=== PATIENT | male | born 1940 | race African-American/Black ===

== ENCOUNTER → 2016-09-12 | Outpatient (CLI) | payer OTHER ==
[~2016-09-12] MED LIST: ADULT LOW DOSE81 MG; ADVAIR 250-501 EACH; ADVAIR 250-501 EACH INH; ALBUTEROL2.5 MG/0.5 INH; ALDACTONE25 MG PO; ALLOPURINOL 30300 M1 PO; AMARYL4 MG; AMARYL4 MG PO; AMLODIPINE BESYL5 MG; ANORO ELLIPTA1 EACH IH; APAP650 PO; ASPIRIN EC81 M1 PO; ATENOLOL 25MG T25 MG PO; AUGMENTIN 875875 MG PO; AYR50 ML NASAL; BAYER CHEWABLE81 MG PO; BENICAR20 MG; BENTYL 20 MG TA20 M1 PO; CARAFATE 1 GM TA1 G1 PO; CARDIZEM CD 18180 M3 PO; CARTIA PO; CEFTIN 250 MG250 MG PO; CENTRUM SILVER1 EAC2 PO; CIPRO500 MG PO; CIPROFLOXACIN500 M1 PO; COUMADIN 10MG T10 M1; COUMADIN 10MG T10 M1 PO; COUMADIN 1MG TAB1 M1 PO; COUMADIN 4 MG TA4 M1 PO; COUMADIN 5 MG TA5 M1 PO; COUMADIN7.5 MG PO; COZAAR 50 MG TA50 M1 PO; CRESTOR5 MG; CRESTOR5 MG PO; DICYCLOMINE HCL10 MG PO; DILTIAZEM ER240 M1 PO; DOXYCYCLINE 10100 MG PO; FLAGYL500 MG PO; GLUCOPHAGE1000 MG; GLUMETZA1000 PO; IRON325 PO; JANUVIA100 MG; JANUVIA100 MG PO; K-DUR10 MEQ PO; KLOR-CON 1010 MEQ; KLOR-CON 1010 MEQ PO; LASIX 40 MG TAB40 M1 PO; LASIX 80 MG TAB80 MG PO; LEVAQUIN 500 M500 M2 PO; LEVEMIR SUBQ; LIPITOR10 MG PO; LOPERAMIDE 2 MG2 M1 PO; LOPRESSOR100 MG; MELATONIN3 MG PO; MUCINEX TA600 MG/TA1 PO; MUCINEX TA600 MG/TA2 PO; NASACORT10.8 ML NS; NEXIUM40 MG PO; NORCO 5-325 TA1 EACH PO; NOVOLOG MI100 UNIT/M SUBQ; NOVOLOG100 UNIT/1 SUBQ; OMEPRAZOLE20 M2 PO; PREDNISONE 10 M10 M1; PREDNISONE 20 M20 MG PO; PRILOSEC20 MG PO; PROAIR HFA8.5 GM INH; PROVENTIL HFA6.7 G1 INH; RABEPRAZOLE SOD20 MG PO; REGLAN 10 MG TA10 MG PO; SOLOSTAR PO; SPIRIVA INH; TOPROL XL25 MG PO; TUMS PO; TYLENOL325 MG PO; VITAMIN C250 MG PO; VITAMIN D 5050000 I1 PO; ZANTAC 150MG T150 M1 PO; ZOFRAN ODT4 MG PO; ZPAK PO
== END ==
LOC: HYPER 07:08
DX: T81.89XD Other complications of procedures, not elsewhere classified, subsequent encounter (principal); E11.69 Type 2 diabetes mellitus with other specified complication; I10 Essential (primary) hypertension; E66.01 Morbid (severe) obesity due to excess calories; E78.00 Pure hypercholesterolemia, unspecified; J44.9 Chronic obstructive pulmonary disease, unspecified; I48.91 Unspecified atrial fibrillation; Z79.4 Long term (current) use of insulin; Z79.84 Long term (current) use of oral hypoglycemic drugs; Y83.8 Other surgical procedures as the cause of abnormal reaction of the patient, or of later complication, without mention of misadventure at the time of the procedure

== ENCOUNTER → 2016-10-03 | Outpatient (CLI) | payer OTHER | LOC: HYPER 07:02 | DX: T81.89XA Other complications of procedures, not elsewhere classified, initial encounter (principal); E66.9 Obesity, unspecified; Z79.84 Long term (current) use of oral hypoglycemic drugs; J44.9 Chronic obstructive pulmonary disease, unspecified; I48.91 Unspecified atrial fibrillation; Z79.4 Long term (current) use of insulin; Y83.8 Other surgical procedures as the cause of abnormal reaction of the patient, or of later complication, without mention of misadventure at the time of the procedure ==

== ENCOUNTER → 2016-12-03 | Outpatient (CLI) | payer OTHER | LOC: HYPER 07:04 | DX: T81.89XD Other complications of procedures, not elsewhere classified, subsequent encounter (principal); E11.65 Type 2 diabetes mellitus with hyperglycemia; J44.9 Chronic obstructive pulmonary disease, unspecified; I48.91 Unspecified atrial fibrillation; E78.00 Pure hypercholesterolemia, unspecified; I10 Essential (primary) hypertension; E66.01 Morbid (severe) obesity due to excess calories; Z79.4 Long term (current) use of insulin; Z79.84 Long term (current) use of oral hypoglycemic drugs; Y83.8 Other surgical procedures as the cause of abnormal reaction of the patient, or of later complication, without mention of misadventure at the time of the procedure ==

== ENCOUNTER → 2016-12-17 | Outpatient (CLI) | payer OTHER ==
[~2016-12-17] VITALS: Ht 198.1 cm; Wt 145.1 kg
[~2016-12-17] MED LIST changes: +ALLOPURINOL 30300 M2 PO; +APAP500 PO; +ATENOLOL 50MG T50 M1 PO; +CARDIZEM CD240 MG PO; +LEVEMIR FL100 UNIT/2 SQ; +PROBIOTIC1 EAC2 PO; +ROSUVASTATIN CAL5 MG PO
--- NOTE | ~2016-12-17 | CATHLAB ---
[facility] [place] [address] INVASIVE PROCEDURE REPORT Name: VALENTE HUAELL Room #: REG [facility]#: [id number] Admission: 12/17/16 Attend Phys: Enrrique Cruz MD Discharge: Date of : 40 Date of Service: 12/17/16 0934 Report #: [id number] THIS REPORT FOR: //name// CC: Enrrique Lopez DATE OF SERVICE: 12/17/2016 CARDIAC CATHETERIZATION REPORT INDICATION: Dyspnea, abnormal nuclear stress test. Full risks, benefits and alternatives of cardiac catheterization were explained to the patient. All questions were answered. Informed consent was obtained. The right groin area was prepped and draped in a sterile manner. Lidocaine was given subcutaneously. A 4-Korean sheath was inserted into the right femoral artery via modified Seldinger technique. CORONARY ANATOMY: The left main artery is a large-caliber vessel, with no flow-limiting lesions. The LAD is a moderate-sized caliber vessel, travelling down the anterior wall and wrapping around the apex. There is only mild disease in the proximal segment, less than 20%. The first diagonal artery is a moderate-sized caliber vessel with mild disease proximally. The left circumflex artery is a moderate-sized caliber vessel, supplying 3 obtuse marginal arteries. There is only mild disease in the proximal segment of the left circumflex artery, less than 20%. The RCA is a moderate-sized caliber vessel, dominant, supplying the PDA and several posterolateral branches. There is only mild disease in the proximal segment of the RCA, less than 20%. A left ventriculogram was performed revealing a dilated left ventricle with probable moderate global LV dysfunction, EF around 40%. Accurate assessment is technically difficult secondary to ectopy. The LVEDP is approximately 25 mmHg. There is no gradient across the outflow tract. IMPRESSION: 1. Mild, nonobstructive coronary artery disease. 2. Right dominant system. [facility] [address] [place] [address] INVASIVE PROCEDURE REPORT Name: VALENTE HUA FRESH MEADOWS Room #: REG [facility]#: [id number] Admission: 12/17/16 Attend Phys: Enrrique Cruz MD Discharge: Date of : 40 Date of Service: 12/17/16 0934 Report #: [id number] 3. Probable moderate global left ventricular dysfunction. 4. Recommend medical therapy. <ELECTRONICALLY SIGNED> By: Enrrique Cruz MD 12/18/16 0008 0934 1307 Enrrique Cruz MD /nt
[2016-12-17 07:21] VITALS: BP 109/69
== END ==
LOC: CATH 06:32
DX: R94.39 Abnormal result of other cardiovascular function study (principal); J44.9 Chronic obstructive pulmonary disease, unspecified; I51.9 Heart disease, unspecified; G47.33 Obstructive sleep apnea (adult) (pediatric); K58.8 Other irritable bowel syndrome; K21.9 Gastro-esophageal reflux disease without esophagitis; I10 Essential (primary) hypertension; G62.9 Polyneuropathy, unspecified; E11.9 Type 2 diabetes mellitus without complications; I42.8 Other cardiomyopathies; E78.00 Pure hypercholesterolemia, unspecified; E66.9 Obesity, unspecified; I49.8 Other specified cardiac arrhythmias; I50.9 Heart failure, unspecified; E78.5 Hyperlipidemia, unspecified; I48.91 Unspecified atrial fibrillation

== ENCOUNTER → 2016-12-21 | Outpatient (CLI) | payer OTHER | LOC: HYPER 08:22 | DX: T81.89XA Other complications of procedures, not elsewhere classified, initial encounter (principal); S31.109D Unspecified open wound of abdominal wall, unspecified quadrant without penetration into peritoneal cavity, subsequent encounter; E11.65 Type 2 diabetes mellitus with hyperglycemia; J44.9 Chronic obstructive pulmonary disease, unspecified; I48.91 Unspecified atrial fibrillation; E78.00 Pure hypercholesterolemia, unspecified; I10 Essential (primary) hypertension; E66.01 Morbid (severe) obesity due to excess calories; Z79.84 Long term (current) use of oral hypoglycemic drugs; Z79.4 Long term (current) use of insulin; Y83.8 Other surgical procedures as the cause of abnormal reaction of the patient, or of later complication, without mention of misadventure at the time of the procedure ==

== ENCOUNTER → 2017-01-15 | Outpatient (CLI) | payer OTHER | LOC: HYPER 07:08 | DX: T81.89XD Other complications of procedures, not elsewhere classified, subsequent encounter (principal); E11.65 Type 2 diabetes mellitus with hyperglycemia; J44.9 Chronic obstructive pulmonary disease, unspecified; I48.91 Unspecified atrial fibrillation; I89.0 Lymphedema, not elsewhere classified; E78.00 Pure hypercholesterolemia, unspecified; I10 Essential (primary) hypertension; E66.01 Morbid (severe) obesity due to excess calories; G47.30 Sleep apnea, unspecified; Z79.4 Long term (current) use of insulin; Z79.84 Long term (current) use of oral hypoglycemic drugs; Y83.8 Other surgical procedures as the cause of abnormal reaction of the patient, or of later complication, without mention of misadventure at the time of the procedure ==

== ENCOUNTER → 2017-02-07 | Outpatient (CLI) | payer OTHER | LOC: HYPER 07:10 | DX: T81.89XD Other complications of procedures, not elsewhere classified, subsequent encounter (principal); E11.65 Type 2 diabetes mellitus with hyperglycemia; E66.9 Obesity, unspecified; J44.9 Chronic obstructive pulmonary disease, unspecified; I10 Essential (primary) hypertension; I48.91 Unspecified atrial fibrillation; I89.0 Lymphedema, not elsewhere classified; E78.00 Pure hypercholesterolemia, unspecified; E66.01 Morbid (severe) obesity due to excess calories; G47.30 Sleep apnea, unspecified; Z79.84 Long term (current) use of oral hypoglycemic drugs; Z79.4 Long term (current) use of insulin; Y83.8 Other surgical procedures as the cause of abnormal reaction of the patient, or of later complication, without mention of misadventure at the time of the procedure ==

== ENCOUNTER → 2017-03-01 | Outpatient (CLI) | payer OTHER | LOC: HYPER 07:51 | DX: T81.89XD Other complications of procedures, not elsewhere classified, subsequent encounter (principal); E11.65 Type 2 diabetes mellitus with hyperglycemia; J44.9 Chronic obstructive pulmonary disease, unspecified; I48.91 Unspecified atrial fibrillation; I89.0 Lymphedema, not elsewhere classified; E66.01 Morbid (severe) obesity due to excess calories; G47.30 Sleep apnea, unspecified; Z79.84 Long term (current) use of oral hypoglycemic drugs; Z79.4 Long term (current) use of insulin; Z68.39 Body mass index [BMI] 39.0-39.9, adult; Y83.8 Other surgical procedures as the cause of abnormal reaction of the patient, or of later complication, without mention of misadventure at the time of the procedure ==

== ENCOUNTER 2017-03-02 12:26 | Emergency (ER) | payer OTHER ==
[~2017-03-02] VITALS: Ht 198.1 cm; Wt 143.8 kg
--- NOTE | ~2017-03-02 | EKG ---
[address] [address] ELECTROCARDIOGRAM REPORT Name: VALENTE HUA Room #: DEP [place]#: [id number] Admission: 03/02/17 Attend Phys: Discharge: 03/02/17 Date of : 40 Report #: [id number] THIS REPORT FOR: //name// [facility] ED Test Date: 2017-03-02 Test Time: 12:53:48 Pat Name: VALENTE HUA Department: Room: Gender: Glass Cutting Machine Feeder: PARISH : 1940 Requested By: Eleuterio Carrizales Order Number: [id number] MD: Gorge Roach Measurements Intervals [place] Rate: 87 P: DC: QRS: 3 QRSD: 171 T: 9 QT: 442 QTc: 532 Interpretive Statements Atrial fibrillation Right bundle branch block Compared to ECG 12/14/2016 16:23:14 No significant changes Electronically Signed On 03-02-2017 16:29:09 CDT by Gorge Roach [email or web address] <ELECTRONICALLY SIGNED> By: Gorge Roach MD 03/02/17 1629 1253 52 Gorge Roach MD /SHAN
[2017-03-02 13:17] LABS: ABSOLUTE NEUTROPHILS 6.2 thou/uL (1.4-8.2); BASOPHILS 0.5 % (0.0-2.0); EOSINOPHILS 1.2 % (0.0-3.0); HEMATOCRIT 36.5 % (42.0-52.0); HEMOGLOBIN 12.7 gm/dL (14.0-18.0); LYMPHOCYTES 27.1 % (24.0-44.0); MCH 29.5 pg (26.0-34.0); MCHC 34.7 g/dL (28.0-37.0); MONOCYTES 10.6 % (1.0-8.0); PLATELET COUNT 170 thou/uL (150-400); POLYS 60.6 % (36.0-66.0); RBC 4.29 mil/uL (4.50-6.00); RDW 15.1 % (10.5-14.5); WBC 10.2 thou/uL (4.0-11.0)
[2017-03-02 13:18] LABS: MANUAL DIFF NO
[2017-03-02 13:27] LABS: CALCIUM 9.4 mg/dL (8.5-10.1); CREATININE 1.3 mg/dL (0.7-1.3)
[2017-03-02 14:13] LABS: PROTIME 31.1 Seconds (9.3-11.4)
[2017-03-02 14:50] VITALS: BP 112/56
== END 2017-03-02 14:39 ==
LOC: ER 12:26
PROVIDERS: Emergency Medicine
DX: M79.89 Other specified soft tissue disorders (principal); I48.2 Chronic atrial fibrillation; K21.9 Gastro-esophageal reflux disease without esophagitis; I11.9 Hypertensive heart disease without heart failure; J96.10 Chronic respiratory failure, unspecified whether with hypoxia or hypercapnia; E11.40 Type 2 diabetes mellitus with diabetic neuropathy, unspecified; E78.00 Pure hypercholesterolemia, unspecified; E66.9 Obesity, unspecified; Z98.890 Other specified postprocedural states

== ENCOUNTER → 2017-03-20 | Outpatient (CLI) | payer OTHER | LOC: CAT 13:23 | DX: J32.0 Chronic maxillary sinusitis (principal); J32.2 Chronic ethmoidal sinusitis ==

== ENCOUNTER → 2017-03-22 | Outpatient (CLI) | payer OTHER | LOC: HYPER 08:09 | DX: T81.89XD Other complications of procedures, not elsewhere classified, subsequent encounter (principal); J44.9 Chronic obstructive pulmonary disease, unspecified; I48.91 Unspecified atrial fibrillation; I89.0 Lymphedema, not elsewhere classified; E11.9 Type 2 diabetes mellitus without complications; E78.00 Pure hypercholesterolemia, unspecified; I10 Essential (primary) hypertension; E66.01 Morbid (severe) obesity due to excess calories; Z79.84 Long term (current) use of oral hypoglycemic drugs; Z79.4 Long term (current) use of insulin; Y83.8 Other surgical procedures as the cause of abnormal reaction of the patient, or of later complication, without mention of misadventure at the time of the procedure ==

== ENCOUNTER → 2017-04-15 | Outpatient (CLI) | payer OTHER ==
[~2017-04-15] MED LIST changes: +ALBUTEROL2.5 MG/31 INH; +PANTOPRAZOLE SO40 M1 PO
== END ==
LOC: HYPER 08:00
DX: T81.89XD Other complications of procedures, not elsewhere classified, subsequent encounter (principal); E11.65 Type 2 diabetes mellitus with hyperglycemia; J44.9 Chronic obstructive pulmonary disease, unspecified; I48.91 Unspecified atrial fibrillation; I89.0 Lymphedema, not elsewhere classified; E78.00 Pure hypercholesterolemia, unspecified; I10 Essential (primary) hypertension; E66.01 Morbid (severe) obesity due to excess calories; G47.30 Sleep apnea, unspecified; Z79.84 Long term (current) use of oral hypoglycemic drugs; Z79.4 Long term (current) use of insulin; Z68.39 Body mass index [BMI] 39.0-39.9, adult; Y83.8 Other surgical procedures as the cause of abnormal reaction of the patient, or of later complication, without mention of misadventure at the time of the procedure

== ENCOUNTER 2017-04-21 15:11 | Inpatient (IN) | payer OTHER ==
[~2017-04-21] VITALS: Ht 195.6 cm; Wt 149.7 kg
--- NOTE | ~2017-04-21 | EKG ---
[address] [address] ELECTROCARDIOGRAM REPORT Name: VALENTE HUA Room #: 443-P ADM IN M.R.#: [id number] Admission: 04/21/17 Attend Phys: Cody Robb DO Discharge: Date of : 40 Report #: [id number] THIS REPORT FOR: //name// [facility] ED Test Date: 2017-04-21 Test Time: 16:44:34 Pat Name: VALENTE HUA Department: Room: 443 Gender: M Vocational Rehabilitation Specialist: hardy molina : 1940 Requested By: Hilda Beauchamp Order Number: [id number] MD: Gorge Roach Measurements Intervals [place] Rate: 88 P: NE: QRS: 9 QRSD: 167 T: 2 QT: 427 QTc: 517 Interpretive Statements Atrial fibrillation Right bundle branch block Compared to ECG 03/02/2017 12:53:48 No significant changes Electronically Signed On 04-21-2017 22:22:34 CDT by Gorge Roach [email or web address] <ELECTRONICALLY SIGNED> By: Gorge Roach MD 04/21/172 43 Gorge Roach MD /SHAN
--- NOTE | ~2017-04-21 | EKG ---
[address] [address] ELECTROCARDIOGRAM REPORT Name: VALENTE HUA Room #: 443- ADM IN M.R.#: [id number] Admission: 04/21/17 Attend Phys: Cody Robb DO Discharge: Date of : 40 Report #: [id number] THIS REPORT FOR: //name// [facility] Test Date: 2017-04-22 Test Time: 08:52:23 Pat Name: VALENTE HUA Department: Room: 443 P Gender: M Shells Inspector: DELIA : 1940 Requested By: Edyta Ortega Order Number: [id number] MD: Pritesh Aleman Measurements Intervals [place] Rate: 73 P: MD: QRS: 29 QRSD: 171 T: 0 QT: 471 QTc: 519 Interpretive Statements Atrial fibrillation Right bundle branch block Compared to ECG 04/21/2017 16:44:34 Atrial fibrillation has replaced sinus rhythm Electronically Signed On 04-23-2017 10:05:22 CDT by Pritesh lAeman [email or web address] <ELECTRONICALLY SIGNED> By: Pritesh Aleman MD, [facility] 04/23/17 1005 Pritesh Aleman MD, [facility] /EPI
--- NOTE | ~2017-04-21 | EKG ---
[address] [address] ELECTROCARDIOGRAM REPORT Name: VALENTE HUA Room #: 443-P ADM IN M.R.#: [id number] Admission: 04/21/17 Attend Phys: Cody Robb DO Discharge: Date of : 40 Report #: [id number] THIS REPORT FOR: //name// [facility] ED Test Date: 2017-04-21 Test Time: 16:54:19 Pat Name: VALENTE HUA Department: Room: 443 P Gender: M Clothing Man: hardy molina : 1940 Requested By: Cody Robb Order Number: [id number] MD: Pritesh Aleman Measurements Intervals [place] Rate: 94 P: 69 [place]: 135 QRS: -6 QRSD: 87 T: 53 QT: 357 QTc: 447 Interpretive Statements Sinus rhythm Repolarization abnormality, probably early repolarization Compared to ECG 04/21/2017 16:44:34 right bundle-branch block no longer present sinus rhythm is replaced atrial fibrillation Electronically Signed On 04-23-2017 9:54:52 CDT by Pritesh Aleman [email or web address] <ELECTRONICALLY SIGNED> By: Pritesh Aleman MD, [facility] 04/23/17 0954 1654 1654 Pritesh Aleman MD, [facility] /EPI
[2017-04-21 15:11] VITALS: BP 156/75
[~2017-04-21 15:11] MED LIST changes: -ALBUTEROL2.5 MG/31 INH; -PANTOPRAZOLE SO40 M1 PO
[2017-04-21 16:53] LABS: HEMATOCRIT 36.9 % (42.0-52.0); HEMOGLOBIN 12.8 gm/dL (14.0-18.0); MCHC 34.8 g/dL (28.0-37.0); MCV 86.3 fL (80.0-100.0); PLATELET COUNT 161 thou/uL (150-400); RBC 4.27 mil/uL (4.50-6.00); RDW 15.5 % (10.5-14.5); WBC 9.7 thou/uL (4.0-11.0)
[2017-04-21 16:55] LABS: MANUAL DIFF YES
[2017-04-21 17:02] LABS: ANION GAP 7 mmol/L (7-16); BUN 20 mg/dL (7-18); CALCIUM 9.8 mg/dL (8.5-10.1); CHLORIDE 98 mmol/L (98-107); CO2 34 mmol/L (21-32); CREATININE 1.2 mg/dL (0.7-1.3); GLUCOSE 193 mg/dL (74-106); POTASSIUM 3.9 mmol/L (3.5-5.1); SODIUM 139 mmol/L (136-145)
[2017-04-21 17:11] LABS: ALBUMIN 3.5 g/dL (3.4-5.0); ALKALINE PHOSPHATASE 143 U/L (46-116); DIRECT BILIRUBIN < 0.1 mg/dL (<0.1-0.3); SGOT 26 U/L (15-37); SGPT 17 U/L (30-65); TOTAL BILIRUBIN 0.2 mg/dL (<0.1-1.0); TOTAL PROTEIN 8.1 g/dL (6.4-8.2); TROPONIN-I < 0.04 ng/mL (<0.04-0.07)
[2017-04-21 17:20] LABS: ABSOLUTE NEUTROPHILS 6.1 thou/uL (1.4-8.2); TOTAL CELL COUNT 100
[2017-04-21 19:03] VITALS: BP 124/78
[2017-04-21 19:58] VITALS: BP 116/92
[2017-04-21] MEDS ORDERED: COUMADIN 4 MG TA4 M1 PO ×2 (20:13→20:14)
[2017-04-21 21:39] LABS: INR 2.9; PROTIME 29.4 Seconds (9.3-11.4)
[2017-04-21] MEDS ORDERED: ALBUTEROL2.5 MG/31 INH (23:49)
[2017-04-22 04:30] VITALS: BP 116/92
[2017-04-22 08:00] VITALS: BP 116/66
[2017-04-22 10:59] LABS: INR 2.3; PROTIME 23.4 Seconds (9.3-11.4)
[2017-04-22 16:00] VITALS: BP 113/54
[2017-04-22 16:58] VITALS: BP 113/54
[2017-04-22 20:03] VITALS: BP 112/61
[2017-04-23 03:32] VITALS: BP 139/60
[2017-04-23 06:23] LABS: HEMATOCRIT 33.7 % (42.0-52.0); HEMOGLOBIN 11.5 gm/dL (14.0-18.0); MCH 29.7 pg (26.0-34.0); MCHC 34.2 g/dL (28.0-37.0); PLATELET COUNT 140 thou/uL (150-400); RBC 3.87 mil/uL (4.50-6.00); RDW 15.6 % (10.5-14.5); WBC 8.4 thou/uL (4.0-11.0)
[2017-04-23 06:24] LABS: MANUAL DIFF YES
[2017-04-23 06:29] LABS: INR 1.8; PROTIME 18.7 Seconds (9.3-11.4)
[2017-04-23 06:35] LABS: CALCIUM 8.6 mg/dL (8.5-10.1); CREATININE 0.9 mg/dL (0.7-1.3); POTASSIUM 3.9 mmol/L (3.5-5.1)
[2017-04-23 08:36] LABS: ABSOLUTE NEUTROPHILS 5.7 thou/uL (1.4-8.2); METAMYELOCYTES 1 %; PLATELET ESTIMATE NORMAL; TOTAL CELL COUNT 100
[2017-04-23 08:52] VITALS: BP 131/63
[2017-04-23] MEDS ORDERED: PANTOPRAZOLE SO40 M1 PO (10:32)
[2017-04-23] MEDS ORDERED: ATENOLOL 50MG T50 M1 PO (10:34)
[2017-04-23 13:21] VITALS: BP 113/54
== END 2017-04-23 12:33 | disposition home health service (06) | DRG 389 ==
LOC: ER 15:11 → EROBS 18:35 → 4S 18:35 → EDBD 04-23 12:33 → 4S 04-23 12:33
PROVIDERS: Emergency Medicine; Family Medicine; Nurse Practitioner Acute Care; Nurse Practitioner Gerontology
DX: K56.7 Ileus, unspecified (principal); J96.10 Chronic respiratory failure, unspecified whether with hypoxia or hypercapnia; I42.9 Cardiomyopathy, unspecified; R07.9 Chest pain, unspecified; K43.2 Incisional hernia without obstruction or gangrene; G47.33 Obstructive sleep apnea (adult) (pediatric); K58.9 Irritable bowel syndrome, unspecified; K21.9 Gastro-esophageal reflux disease without esophagitis; I48.2 Chronic atrial fibrillation; E11.40 Type 2 diabetes mellitus with diabetic neuropathy, unspecified; E78.00 Pure hypercholesterolemia, unspecified; M10.9 Gout, unspecified; E66.01 Morbid (severe) obesity due to excess calories; E78.5 Hyperlipidemia, unspecified; J44.9 Chronic obstructive pulmonary disease, unspecified; I50.9 Heart failure, unspecified; I11.0 Hypertensive heart disease with heart failure; Z68.39 Body mass index [BMI] 39.0-39.9, adult; Z79.899 Other long term (current) drug therapy; Z79.4 Long term (current) use of insulin
CPT/HCPCS: 10100

== ENCOUNTER → 2017-05-10 | Outpatient (CLI) | payer OTHER ==
[~2017-05-10] MED LIST changes: +ALBUTEROL2.5 MG/31 INH; +PANTOPRAZOLE SO40 M1 PO
== END ==
LOC: HYPER 07:59
DX: T81.89XD Other complications of procedures, not elsewhere classified, subsequent encounter (principal); E11.65 Type 2 diabetes mellitus with hyperglycemia; J44.9 Chronic obstructive pulmonary disease, unspecified; I48.91 Unspecified atrial fibrillation; Z79.4 Long term (current) use of insulin; I89.0 Lymphedema, not elsewhere classified; E78.00 Pure hypercholesterolemia, unspecified; E66.01 Morbid (severe) obesity due to excess calories; G47.30 Sleep apnea, unspecified; Z79.84 Long term (current) use of oral hypoglycemic drugs; Z68.39 Body mass index [BMI] 39.0-39.9, adult; Y83.8 Other surgical procedures as the cause of abnormal reaction of the patient, or of later complication, without mention of misadventure at the time of the procedure

== ENCOUNTER → 2017-06-03 | Outpatient (CLI) | payer OTHER | LOC: HYPER 07:01 | DX: T81.89XD Other complications of procedures, not elsewhere classified, subsequent encounter (principal); J44.9 Chronic obstructive pulmonary disease, unspecified; I48.91 Unspecified atrial fibrillation; I89.0 Lymphedema, not elsewhere classified; E78.00 Pure hypercholesterolemia, unspecified; I10 Essential (primary) hypertension; E66.01 Morbid (severe) obesity due to excess calories; Z79.4 Long term (current) use of insulin; Z79.84 Long term (current) use of oral hypoglycemic drugs; Y83.8 Other surgical procedures as the cause of abnormal reaction of the patient, or of later complication, without mention of misadventure at the time of the procedure ==

== ENCOUNTER → 2017-08-08 | Outpatient (CLI) | payer OTHER | LOC: SEN 06-20 10:55 | DX: R20.2 Paresthesia of skin (principal); I50.9 Heart failure, unspecified; E11.9 Type 2 diabetes mellitus without complications; I48.91 Unspecified atrial fibrillation ==

== ENCOUNTER 2017-09-25 15:25 | Inpatient (IN) | payer OTHER, SELFPAY ==
[~2017-09-25] VITALS: Ht 195.6 cm; Wt 153.2 kg
--- NOTE | ~2017-09-25 | EKG ---
[address] [address] [facility] [place] [address] ELECTROCARDIOGRAM REPORT Name: VALENTE HUA Room #: 170-9 ADM IN M.R.#: [id number] Admission: 09/25/17 Attend Phys: Cody Robb DO Discharge: Date of : [birth year] Report #: [id number] THIS REPORT FOR: //name// [facility] ED Test Date: 2017-09-25 Test Time: 16:02:46 Pat Name: VALENTE HUA Department: Room: 170 Gender: M Stripper Soft Plastic: RADHA : 1939-11-06 Requested By: Raza Wagner Order Number: [id number] MD: Pritesh Aleman Measurements Intervals [place] Rate: 125 P: -70 [place]: 88 QRS: 22 QRSD: 167 T: 0 QT: 348 QTc: 502 Interpretive Statements Atrial fibrillation Multiple premature complexes, vent Right bundle branch block Compared to ECG 04/22/2017 08:52:23 Premature ventricular complexes are now present Electronically Signed On 09-25-2017 17:37:45 PLASTIC PARTS DESIGNER by Pritesh Aleman [email or web address] <ELECTRONICALLY SIGNED> By: Pritesh Aleman MD, [facility] 09/25/17 1737 1602 160 Pritesh Aleman MD, FAC /EPI
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
[2017-09-25 15:26] VITALS: BP 131/53
[2017-09-25 16:39] LABS: HEMATOCRIT 34.7 % (42.0-52.0); MCH 30.2 pg (26.0-34.0); MCHC 34.4 g/dL (28.0-37.0); MCV 87.7 fL (80.0-100.0); PLATELET COUNT 121 thou/uL (150-400); RBC 3.96 mil/uL (4.50-6.00); WBC 8.6 thou/uL (4.0-11.0)
[2017-09-25 16:40] LABS: CALCIUM 9.1 mg/dL (8.5-10.1); CREATININE 1.2 mg/dL (0.7-1.3); POTASSIUM 3.5 mmol/L (3.5-5.1)
[2017-09-25 16:50] LABS: APTT 41.8 Seconds (24.5-32.8); INR 2.2
[2017-09-25 18:01] VITALS: BP 134/53
[2017-09-26 00:04] LABS: PROTIME 20.7 Seconds (9.3-11.4)
[2017-09-26 07:55] VITALS: BP 130/68
[2017-09-26 08:05] VITALS: BP 122/77
[2017-09-26 12:24] LABS: INR 1.8
[2017-09-26 12:52] VITALS: BP 133/74
[2017-09-26 14:54] VITALS: BP 133/74
[2017-09-26 15:43] VITALS: BP 138/74
[2017-09-26 20:04] VITALS: BP 128/82
[2017-09-27 03:40] LABS: INR 1.6; PROTIME 16.4 Seconds (9.3-11.4)
[2017-09-27 03:42] LABS: BASOPHILS 0.3 % (0.0-2.0); HEMATOCRIT 35.6 % (42.0-52.0); HEMOGLOBIN 12.2 gm/dL (14.0-18.0); LYMPHOCYTES 15.9 % (24.0-44.0); MCHC 34.1 g/dL (28.0-37.0); MCV 87.9 fL (80.0-100.0); MONOCYTES 3.6 % (1.0-8.0); PLATELET COUNT 135 thou/uL (150-400); POLYS 80.2 % (36.0-66.0); RBC 4.06 mil/uL (4.50-6.00); RDW 15.2 % (10.5-14.5)
[2017-09-27 03:43] LABS: CALCIUM 8.8 mg/dL (8.5-10.1); POTASSIUM 3.8 mmol/L (3.5-5.1)
[2017-09-27 04:08] VITALS: BP 127/71
[2017-09-27 07:52] VITALS: BP 128/59
[2017-09-27] MEDS ORDERED: DOXYCYCLINE 10100 MG PO (09:20)
[2017-09-27 09:57] VITALS: BP 128/59
[2018-01-23] MEDS ORDERED: ANTIVERT25 MG PO (14:28)
[2018-04-20] MEDS ORDERED: NORCO 5-325 TA1 EACH PO (01:41)
== END 2017-09-27 10:49 | disposition home or self-care (01) | DRG 308 ==
LOC: ER 15:25 → EROBS 17:26 → 2N 17:26 → ER 17:26 → 2N 09-26 14:53
PROVIDERS: Family Medicine; Physician Assistant
DX: I48.2 Chronic atrial fibrillation (principal); J96.21 Acute and chronic respiratory failure with hypoxia; Z68.41 Body mass index [BMI] 40.0-44.9, adult; J44.1 Chronic obstructive pulmonary disease with (acute) exacerbation; N39.0 Urinary tract infection, site not specified; I42.9 Cardiomyopathy, unspecified; G47.33 Obstructive sleep apnea (adult) (pediatric); K21.9 Gastro-esophageal reflux disease without esophagitis; I10 Essential (primary) hypertension; K58.9 Irritable bowel syndrome, unspecified; E11.40 Type 2 diabetes mellitus with diabetic neuropathy, unspecified; E78.00 Pure hypercholesterolemia, unspecified; E66.9 Obesity, unspecified; M10.9 Gout, unspecified; Z79.899 Other long term (current) drug therapy; Z80.9 Family history of malignant neoplasm, unspecified; Z79.01 Long term (current) use of anticoagulants
CPT/HCPCS: 10081

== ENCOUNTER 2017-09-29 09:40 | Emergency (ER) | payer OTHER ==
[~2017-09-29] VITALS: Ht 198.1 cm; Wt 140.2 kg
--- NOTE | ~2017-09-29 | EKG ---
[address] [address] [facility] [place] [address] ELECTROCARDIOGRAM REPORT Name: VALENTE HUA Room #: REG TAMIE Saldaña#: [id number] Admission: 09/29/17 Attend Phys: Discharge: Date of : [birth year] Report #: [id number] THIS REPORT FOR: //name// [facility] ED Test Date: 2017-09-29 Test Time: 10:10:10 Pat Name: VALENTE HUA Department: Room: Gender: M Qlikview Developer: alejandro : 1939-11-06 Requested By: Raza Wagner Order Number: [id number] MD: Gorge Roach Measurements Intervals [place] Rate: 75 P: [place]: QRS: 34 QRSD: 173 T: 20 QT: 468 QTc: 523 Interpretive Statements Atrial fibrillation Ventricular premature complex Right bundle branch block Compared to ECG 09/25/2017 16:02:46 Ventricular premature complex(es) now present Electronically Signed On 09-29-2017 12:16:43 SAW GRINDER by Gorge Roach [email or web address] <ELECTRONICALLY SIGNED> By: Gorge Roach MD 09/29/17 1216 1010 1010 Gorge Roach MD /SHAN
[2017-09-29 10:40] LABS: HEMATOCRIT 34.6 % (42.0-52.0); HEMOGLOBIN 11.8 gm/dL (14.0-18.0); MCH 30.1 pg (26.0-34.0); MCHC 34.1 g/dL (28.0-37.0); MCV 88.2 fL (80.0-100.0); PLATELET COUNT 150 thou/uL (150-400); RBC 3.92 mil/uL (4.50-6.00); RDW 15.1 % (10.5-14.5); WBC 7.2 thou/uL (4.0-11.0)
[2017-09-29 10:53] LABS: ANION GAP 6 mmol/L (7-16); BUN 26 mg/dL (7-18); CHLORIDE 101 mmol/L (98-107); CO2 34 mmol/L (21-32); CREATININE 1.1 mg/dL (0.7-1.3); GLUCOSE 214 mg/dL (74-106); POTASSIUM 3.8 mmol/L (3.5-5.1); SODIUM 141 mmol/L (136-145)
[2017-09-29 11:01] LABS: TROPONIN-I < 0.04 ng/mL (<0.06)
[2017-09-29 11:46] LABS: ABSOLUTE NEUTROPHILS 4.3 thou/uL (1.4-8.2); ANISOCYTOSIS 1+; TARGET CELLS 1+
[2017-09-29] MEDS ORDERED: PREDNISONE 20 M20 MG PO (11:47)
[2017-09-29 11:52] LABS: HYPOCHROMASIA SLIGHT; POIKILOCYTOSIS SLIGHT
[2017-09-29 12:13] VITALS: BP 166/68
[2018-01-23] MEDS ORDERED: ANTIVERT25 MG PO (14:28)
[2018-04-20] MEDS ORDERED: NORCO 5-325 TA1 EACH PO (01:41)
== END 2017-09-29 12:15 | disposition home or self-care (01) ==
LOC: ER 09:40
PROVIDERS: Physician Assistant
DX: J44.1 Chronic obstructive pulmonary disease with (acute) exacerbation (principal); R06.02 Shortness of breath; K58.9 Irritable bowel syndrome, unspecified; K21.9 Gastro-esophageal reflux disease without esophagitis; I10 Essential (primary) hypertension; E11.9 Type 2 diabetes mellitus without complications; G62.9 Polyneuropathy, unspecified; I42.9 Cardiomyopathy, unspecified; E78.00 Pure hypercholesterolemia, unspecified

== ENCOUNTER 2017-11-25 10:32 | Emergency (ER) | payer OTHER ==
[~2017-11-25] VITALS: Ht 198.1 cm; Wt 136.1 kg
[2017-11-25 10:34] VITALS: BP 163/83
[2017-11-25] MEDS ORDERED: DEMADEX20 MG PO (12:06)
[2018-01-23] MEDS ORDERED: ANTIVERT25 MG PO (14:28)
[2018-04-20] MEDS ORDERED: NORCO 5-325 TA1 EACH PO (01:41)
== END 2017-11-25 12:14 | disposition home or self-care (01) ==
LOC: ER 10:32
DX: R60.0 Localized edema (principal); I10 Essential (primary) hypertension; K21.9 Gastro-esophageal reflux disease without esophagitis; E11.9 Type 2 diabetes mellitus without complications; M10.9 Gout, unspecified; E78.00 Pure hypercholesterolemia, unspecified

== ENCOUNTER 2018-06-18 14:02 | Emergency (ER) | payer OTHER ==
[~2018-06-18] VITALS: Ht 198.1 cm; Wt 145.2 kg
[~2018-06-18 14:02] MED LIST changes: -ALLOPURINOL 10100 M1 PO; -OCEAN104 ML NASAL
[2018-06-18 15:34] VITALS: BP 120/68
== END 2018-06-18 15:36 | disposition home or self-care (01) ==
LOC: ER 14:02
DX: E86.0 Dehydration (principal); J96.10 Chronic respiratory failure, unspecified whether with hypoxia or hypercapnia; J44.9 Chronic obstructive pulmonary disease, unspecified; G47.33 Obstructive sleep apnea (adult) (pediatric); I48.91 Unspecified atrial fibrillation; K58.9 Irritable bowel syndrome, unspecified; K21.9 Gastro-esophageal reflux disease without esophagitis; I10 Essential (primary) hypertension; E11.40 Type 2 diabetes mellitus with diabetic neuropathy, unspecified; I42.9 Cardiomyopathy, unspecified; E78.00 Pure hypercholesterolemia, unspecified; M10.9 Gout, unspecified; E66.9 Obesity, unspecified; Z68.37 Body mass index [BMI] 37.0-37.9, adult; Z79.4 Long term (current) use of insulin

== ENCOUNTER → 2018-06-18 | Outpatient (CLI) | payer OTHER ==
[~2018-06-18] VITALS: Ht 198.1 cm; Wt 152.0 kg
[~2018-06-18] MED LIST changes: +ALLOPURINOL 10100 M1 PO; +ANTIVERT25 MG PO; +DEMADEX20 MG PO; +OCEAN104 ML NASAL
[2018-06-18 13:12] VITALS: BP 139/61
[2018-06-18 14:10] LABS: HEMOGLOBIN 12.9 gm/dL (14.0-18.0); MCH 29.4 pg (26.0-34.0); MCHC 34.7 g/dL (28.0-37.0); MCV 84.7 fL (80.0-100.0); PLATELET COUNT 168 thou/uL (150-400); RBC 4.37 mil/uL (4.50-6.00); URINE BILIRUBIN NEGATIVE (Negative); URINE BLOOD NEGATIVE (Negative); URINE CLARITY CLEAR; URINE COLOR YELLOW; URINE GLUCOSE-RANDOM* NEGATIVE (Negative); URINE KETONES TRACE (Negative); URINE LEUKOCYTES NEGATIVE (Negative); URINE NITRITE NEGATIVE (Negative); URINE PROTEIN (DIPSTICK) NEGATIVE (Negative); URINE UROBILINOGEN 0.2 E.U./dl (0.2-1.0); WBC 9.9 thou/uL (4.0-11.0)
[2018-06-18 14:18] LABS: CALCIUM 9.5 mg/dL (8.5-10.1); CREATININE 1.3 mg/dL (0.7-1.3); POTASSIUM 3.5 mmol/L (3.5-5.1)
[2018-06-18 14:32] LABS: ABSOLUTE NEUTROPHILS 4.8 thou/uL (1.4-8.2); PLATELET ESTIMATE NORMAL
== END ==
LOC: SEN 12:57
PROVIDERS: Nurse Practitioner Family
DX: K58.9 Irritable bowel syndrome, unspecified (principal); M54.5 Low back pain; E86.0 Dehydration

== ENCOUNTER 2018-06-20 02:45 | Inpatient (IN) | payer OTHER ==
[~2018-06-20] VITALS: Ht 198.1 cm; Wt 143.1 kg
[2018-06-20] VITALS (8 sets, daily range): BP systolic 127–152; BP diastolic 54–106
[2018-06-20 03:23] LABS: HEMATOCRIT 38.6 % (42.0-52.0); HEMOGLOBIN 13.5 gm/dL (14.0-18.0); MCH 29.9 pg (26.0-34.0); MCHC 34.9 g/dL (28.0-37.0); MCV 85.7 fL (80.0-100.0); RBC 4.51 mil/uL (4.50-6.00); RDW 15.3 % (10.5-14.5); WBC 8.6 thou/uL (4.0-11.0)
[2018-06-20 03:24] LABS: URINE BILIRUBIN NEGATIVE (Negative); URINE BLOOD NEGATIVE (Negative); URINE CLARITY CLEAR; URINE COLOR YELLOW; URINE GLUCOSE-RANDOM* NEGATIVE (Negative); URINE KETONES NEGATIVE (Negative); URINE LEUKOCYTES-REFLEX NEGATIVE (Negative); URINE NITRITE-REFLEX NEGATIVE (Negative); URINE PROTEIN (DIPSTICK) NEGATIVE (Negative)
[2018-06-20 03:32] LABS: CALCIUM 9.7 mg/dL (8.5-10.1); CREATININE 1.2 mg/dL (0.7-1.3); POTASSIUM 3.9 mmol/L (3.5-5.1)
[2018-06-20 03:38] LABS: ALBUMIN 3.5 g/dL (3.4-5.0); TOTAL BILIRUBIN 0.3 mg/dL (<0.1-1.0); TOTAL PROTEIN 8.2 g/dL (6.4-8.2)
[2018-06-21 04:45] VITALS: BP 158/96
[2018-06-21 05:21] LABS: HEMATOCRIT 35.7 % (42.0-52.0); HEMOGLOBIN 12.5 gm/dL (14.0-18.0); MCH 29.6 pg (26.0-34.0); MCHC 34.9 g/dL (28.0-37.0); MCV 84.8 fL (80.0-100.0); PLATELET COUNT 154 thou/uL (150-400); RBC 4.21 mil/uL (4.50-6.00); WBC 5.9 thou/uL (4.0-11.0)
[2018-06-21 05:27] LABS: PROTIME 20.4 Seconds (9.3-11.4)
[2018-06-21 05:30] LABS: CALCIUM 9.2 mg/dL (8.5-10.1); MAGNESIUM 1.4 mg/dL (1.8-2.4); POTASSIUM 3.9 mmol/L (3.5-5.1)
[2018-06-21 05:51] VITALS: BP 143/91
[2018-06-21 05:55] LABS: ABSOLUTE NEUTROPHILS 3.5 thou/uL (1.4-8.2)
[2018-06-21 05:56] LABS: LARGE PLATELETS FEW
[2018-06-21 07:05] VITALS: BP 155/71
[2018-06-21 15:45] VITALS: BP 157/73
[2018-06-21 21:49] VITALS: BP 157/85
[2018-06-22 04:35] LABS: HEMATOCRIT 37.3 % (42.0-52.0); HEMOGLOBIN 12.7 gm/dL (14.0-18.0); MCH 29.1 pg (26.0-34.0); MCHC 34.1 g/dL (28.0-37.0); MCV 85.4 fL (80.0-100.0); RBC 4.37 mil/uL (4.50-6.00); RDW 15.2 % (10.5-14.5); WBC 6.2 thou/uL (4.0-11.0)
[2018-06-22 04:40] LABS: CALCIUM 9.2 mg/dL (8.5-10.1); CREATININE 0.8 mg/dL (0.7-1.3); POTASSIUM 3.9 mmol/L (3.5-5.1); PROTIME 20.7 Seconds (9.3-11.4)
[2018-06-22 05:46] VITALS: BP 150/64
[2018-06-22 08:00] VITALS: BP 132/63
[2018-06-22 09:30] VITALS: BP 138/63
[2018-06-22 12:20] VITALS: BP 147/85
[2018-06-22 16:05] VITALS: BP 130/73
[2018-06-22] MEDS ORDERED: ALLOPURINOL 10100 M1 PO (20:17)
[2018-06-22] MEDS ORDERED: DEMADEX20 MG PO (20:20)
[2018-06-22] MEDS ORDERED: OCEAN104 ML NASAL (20:31)
[2018-06-22 20:35] VITALS: BP 143/59
[2018-06-23 04:45] VITALS: BP 132/96
[2018-06-23 07:28] VITALS: BP 138/56
[2018-06-23 14:58] VITALS: BP 135/74
[2018-06-23 20:30] VITALS: BP 146/84
[2018-06-24 04:45] VITALS: BP 146/91
[2018-06-24 06:03] LABS: HEMATOCRIT 37.8 % (42.0-52.0); MCH 28.9 pg (26.0-34.0); MCHC 34.3 g/dL (28.0-37.0); MCV 84.3 fL (80.0-100.0); RBC 4.48 mil/uL (4.50-6.00); WBC 5.9 thou/uL (4.0-11.0)
[2018-06-24 06:11] LABS: CALCIUM 9.8 mg/dL (8.5-10.1); CREATININE 0.9 mg/dL (0.7-1.3); POTASSIUM 4.1 mmol/L (3.5-5.1)
[2018-06-24 07:57] VITALS: BP 138/83
[2018-06-24 08:26] LABS: INR 1.9; PROTIME 19.4 Seconds (9.3-11.4)
[2018-06-24 09:19] VITALS: BP 138/83
== END 2018-06-24 12:13 | disposition left against medical advice (07) | DRG 393 ==
LOC: ER 02:45 → 2N 04:22 → EROBS 04:22 → 2N 04:53
PROVIDERS: Emergency Medicine; Hospitalist; Nurse Practitioner
DX: K43.6 Other and unspecified ventral hernia with obstruction, without gangrene (principal); N17.0 Acute kidney failure with tubular necrosis; J96.10 Chronic respiratory failure, unspecified whether with hypoxia or hypercapnia; I42.9 Cardiomyopathy, unspecified; J44.9 Chronic obstructive pulmonary disease, unspecified; G47.33 Obstructive sleep apnea (adult) (pediatric); I48.2 Chronic atrial fibrillation; K21.9 Gastro-esophageal reflux disease without esophagitis; I10 Essential (primary) hypertension; E78.00 Pure hypercholesterolemia, unspecified; E66.9 Obesity, unspecified; M10.9 Gout, unspecified; E11.42 Type 2 diabetes mellitus with diabetic polyneuropathy; M62.84 Sarcopenia; Z53.21 Procedure and treatment not carried out due to patient leaving prior to being seen by health care provider; K58.1 Irritable bowel syndrome with constipation; Z99.81 Dependence on supplemental oxygen; Z28.21 Immunization not carried out because of patient refusal; Z68.36 Body mass index [BMI] 36.0-36.9, adult; Z87.828 Personal history of other (healed) physical injury and trauma; Z79.4 Long term (current) use of insulin; Z79.01 Long term (current) use of anticoagulants; Z79.51 Long term (current) use of inhaled steroids; Z79.84 Long term (current) use of oral hypoglycemic drugs; Z79.899 Other long term (current) drug therapy; Z80.8 Family history of malignant neoplasm of other organs or systems
CPT/HCPCS: 10081

== ENCOUNTER 2018-09-03 08:59 | Inpatient (IN) | payer OTHER ==
[~2018-09-03] VITALS: Ht 198.1 cm; Wt 149.7 kg
[~2018-09-03 08:59] MED LIST changes: +ALLOPURINOL 10100 M1 PO; +OCEAN104 ML NASAL
[2018-09-03 09:01] VITALS: BP 94/73
[2018-09-03 09:52] LABS: ABSOLUTE NEUTROPHILS 6.2 thou/uL (1.4-8.2); BASOPHILS 0.4 % (0.0-2.0); HEMATOCRIT 33.7 % (42.0-52.0); HEMOGLOBIN 11.6 gm/dL (14.0-18.0); LYMPHOCYTES 14.3 % (24.0-44.0); MCH 29.4 pg (26.0-34.0); MCHC 34.4 g/dL (28.0-37.0); MCV 85.6 fL (80.0-100.0); MONOCYTES 2.9 % (1.0-8.0); PLATELET COUNT 129 thou/uL (150-400); POLYS 82.4 % (36.0-66.0); RBC 3.93 mil/uL (4.50-6.00); RDW 15.5 % (10.5-14.5); WBC 7.5 thou/uL (4.0-11.0)
[2018-09-03] MEDS ORDERED: CIPRO500 MG PO (09:54)
[2018-09-03 10:04] LABS: ANION GAP 6 mmol/L (7-16); BUN 24 mg/dL (7-18); CALCIUM 9.2 mg/dL (8.5-10.1); CHLORIDE 98 mmol/L (98-107); CO2 33 mmol/L (21-32); CREATININE 1.3 mg/dL (0.7-1.3); GLUCOSE 225 mg/dL (74-106); POTASSIUM 4.7 mmol/L (3.5-5.1); SODIUM 137 mmol/L (136-145)
[2018-09-03 10:05] LABS: INR 2.8; PROTIME 29.5 Seconds (9.3-11.4)
[2018-09-03 10:08] LABS: TROPONIN-I <0.06 ng/mL (<0.06)
[2018-09-03 12:59] VITALS: BP 151/64
[2018-09-03 13:36] VITALS: BP 137/65
--- NOTE | 2018-09-03 13:53 | EKG ---
[address] [address] ELECTROCARDIOGRAM REPORT Name: VALENTE HUA Room #: 170-2 ADM IN M.R.#: [id number] Admission: 09/03/18 Attend Phys: Cassi Ren MD Discharge: Date of : [birth year] Report #: [id number] THIS REPORT FOR: //name// [facility] ED Test Date: 2018-09-03 Test Time: 09:24:20 Pat Name: VALENTE HUA Department: Room: 170 Gender: M Orthopedically Impaired Teacher: : 1939-11-06 Requested By: Raza Wagner Order Number: [id number] MD: Gorge Roach Measurements Intervals [place] Rate: 77 P: [place]: QRS: 27 QRSD: 166 T: -10 QT: 440 QTc: 499 Interpretive Statements Atrial fibrillation Right bundle branch block Compared to ECG 04/20/2018 00:05:20 No significant changes Electronically Signed On 09-03-2018 13:53:22 WATCH TRAIN INSPECTOR by Gorge Roach [email or web address] <ELECTRONICALLY SIGNED> By: Gorge Roach MD 09/03/18 1353 0924 3 Gorge Roach MD /SHAN
[2018-09-03] MEDS ORDERED: CARDIZEM CD240 MG PO (14:41)
[2018-09-03] MEDS ORDERED: ATENOLOL 50MG T50 MG PO (14:41)
[2018-09-03] MEDS ORDERED: CRESTOR5 MG PO (14:43)
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
[2018-09-03 20:00] VITALS: BP 143/90
[2018-09-04 04:25] VITALS: BP 139/62
--- NOTE | 2018-09-04 04:43 | NUR ---
ASSUMED CARE AT 1900, ASSESSMENT COMPLETED. PT DENIED PAIN OR NAUSEA. REPORTS FEELING SOB WITH MINIMAL EXERTION. PLACED ON CPAP ABOUT MIDNIGHT, WORE FOR A FEW HOURS THEN TOOK BACK OFF. EXPECTORATED LARGE AMOUNTS OF SPUTUM AFTER REMOVING CPAP. ON 5L O2. IV ZOSYN INFUSING OVERNIGHT. C/O MILD HEADACHE, GAVE TYLENOL. BLOOD SUGAR 282 AT HS, GAVE 6 UNITS OF LISPRO. NO OTHER CONCERNS, WILL CONTINUE TO MONITOR.
[2018-09-04 05:13] LABS: CALCIUM 9.6 mg/dL (8.5-10.1); CREATININE 1.1 mg/dL (0.7-1.3); POTASSIUM 4.7 mmol/L (3.5-5.1)
[2018-09-04 05:23] LABS: HEMATOCRIT 34.4 % (42.0-52.0); HEMOGLOBIN 11.5 gm/dL (14.0-18.0); MCH 29.2 pg (26.0-34.0); MCHC 33.4 g/dL (28.0-37.0); MCV 87.4 fL (80.0-100.0); RBC 3.94 mil/uL (4.50-6.00); RDW 15.1 % (10.5-14.5); WBC 8.2 thou/uL (4.0-11.0)
[2018-09-04 07:30] VITALS: BP 131/57
--- NOTE | 2018-09-04 14:21 | NUR ---
ASSESSMENT-PT LIVES AT HOME WITH HIS WHO IS 75 YEARS OLD AND HAS A BAD BACK. PT USES A CANE OR HIS ELECTRIC WC TO GET AROUND. PT HAS A C-PAP AND A NEBULIZER THRU [facility]. PT SAYS HE DOES HIS OWN ADLS. THEY HAVE A SON IN THE AREA. PT UNDERSTANDS HE MAY GET TO GO HOME TOMORROW IF MEDICALLY STABLE. FOLLOWING TO ASSIST WITH DC PLANNING.
[2018-09-04 16:20] VITALS: BP 148/64
--- NOTE | 2018-09-04 16:21 | NUR ---
Assumed pt care at 7am.Pt in bed very needy, hard to please and constantly traveling construction superintendent light.Assessment completed.vss.Meds given as ordered and well tolerated. Pt up to bathroom with assist and o2.Dr Mccarthy here,order noted.Pt might probably dc home in am if stable. here today and updates given.Will continue to monitor.
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
[2018-09-04 19:19] VITALS: BP 114/77
--- NOTE | 2018-09-05 04:41 | NUR ---
ASSUMED CARE AT 1900, ASSESSMENT COMPLETED. DENIED PAIN OR NAUSEA. REPORTS FEELING EASILY WINDED/SOB WITH ACTIVITY OR TALKING. LUNG SOUNDS IMPROVED COMPARED TO PREVIOUS SHIFT, STILL HAS WHEEZE ON EXHALATION WITH SLIGHT CRACKLES IN BASES. ASKED TO RESUME HIS BENTYL HE WAS HAVING MULTIPLE STOOLS DURING THE DAY, ALSO STATED HIS DILTIAZEM WAS BID; OBTAINED ORDERS TO ADD THESE MEDS. EDUCATED PT ON PULMONARY HEALTH AND POC. POSSIBLE D/C HOME TODAY. NO OTHER CONCERNS, WILL CONTINUE TO MONITOR.
[2018-09-05 05:21] VITALS: BP 134/83
[2018-09-05 07:33] VITALS: BP 151/74
[2018-09-05 16:23] VITALS: BP 129/77
--- NOTE | 2018-09-05 21:04 | NUR ---
ASSUMED CARE OF PT AT 0700. ASSESSMENT COMPLETED AND CHARTED. PT DENIES PAIN, N/V/D. MEDS GIVEN ORDERED, SEE EMAR. ELEVATED BP, ATENOLOL HELD DUE TO LOW PULSE, OTHER BP MEDS GIVEN. ACHS, INSULIN GIVEN PER SLIDING SCALE. PT WANTS TO GO HOME TODAY, BUT DESATS WHEN WALKING REQUIRING MORE O2 THAN BASELINE. PLAN TO STAY ANOTHER NIGHT. PT IN STABLE CONDITION. END OF SHIFT.
[2018-09-05 21:25] VITALS: BP 135/88
[2018-09-06 03:40] VITALS: BP 148/72
[2018-09-06 06:23] LABS: INR 2.5; PROTIME 25.8 Seconds (9.3-11.4)
--- NOTE | 2018-09-06 07:47 | NUR ---
PT USES ABOUT 5-6L/NC EVEN AT REST. PT USED HIS CPAP FOR MOST OF THE NIGHT BUT THEN WANTED IT OFF ABOUT 0400 HRS. PT USES URINAL. HAS DIFFICULTY REPOSITIONING SELF IN BED WHILE LAYING FLAT BUT SITS UP WELL BY SIDE OF BED. PT IS AFEBRILE. WITH EXP WHEEZES.PT IS EAGER TO DO THERAPY TODAY AND GO HOME. PT TENDS TO GET FORGETFUL AT TIMES. HE WAS OTHERWISE PLEASANT AND COOPERATIVE THROUGH THE NIGHT.
--- NOTE | 2018-09-06 09:31 | NUR ---
ASSUMED CARE OF PT AT 0700. ASSESSMENT COMPLETED AND CHARTED. A&0,X4. DENIES PAIN AND N/V/D. IRREGULAR HR DUE TO A.FIB. 5 L NC AT REST. PT STATES "I'M GOING HOME TODAY." AM MEDS GIVEN ORDERED. WILL CONTINUE TO MONITOR.
[2018-09-06] MEDS ORDERED: AUGMENTIN 875-1 EACH PO (10:24)
[2018-09-06] MEDS ORDERED: PREDNISONE 20 M20 MG PO (10:26)
[2018-09-06 11:06] VITALS: BP 122/77
--- NOTE | 2018-09-06 12:28 | NUR ---
NEW D/C ORDERS WITH HOME HEALTH. REFFERAL SENT TO [facility], DEACON NOTIFIED. SCRIPTS GIVEN TO PT. SECURITY RETURNED PT KEYS. PT LEFT VIA WHEELCHAIR AND O2 IN STABLE CONDITION WITH BELONGINGS AT 12:07. IV REMOVED PRIOR TO LEAVING. NO PROBLEMS NOTED.
== END 2018-09-06 13:00 | disposition home health service (06) | DRG 177 ==
LOC: ER 08:59 → 4E 10:45 → EROBS 10:45 → 4E 14:01
PROVIDERS: Hospitalist; Physician Assistant; ADMIT Internal Medicine
PROC: 5A09357 Assistance with Respiratory Ventilation, Less than 24 Consecutive Hours, Continuous Positive Airway Pressure (ICD-10-PCS; principal; 2018-09-03)
DX: J15.6 Pneumonia due to other Gram-negative bacteria (principal); J96.21 Acute and chronic respiratory failure with hypoxia; J44.1 Chronic obstructive pulmonary disease with (acute) exacerbation; J44.0 Chronic obstructive pulmonary disease with (acute) lower respiratory infection; G47.33 Obstructive sleep apnea (adult) (pediatric); I48.2 Chronic atrial fibrillation; K21.9 Gastro-esophageal reflux disease without esophagitis; E11.40 Type 2 diabetes mellitus with diabetic neuropathy, unspecified; M10.9 Gout, unspecified; I25.5 Ischemic cardiomyopathy; K08.409 Partial loss of teeth, unspecified cause, unspecified class; I25.10 Atherosclerotic heart disease of native coronary artery without angina pectoris; E66.01 Morbid (severe) obesity due to excess calories; I11.0 Hypertensive heart disease with heart failure; K58.9 Irritable bowel syndrome, unspecified; I50.9 Heart failure, unspecified; E78.00 Pure hypercholesterolemia, unspecified; E66.9 Obesity, unspecified; Z68.38 Body mass index [BMI] 38.0-38.9, adult; Z90.49 Acquired absence of other specified parts of digestive tract; Z79.01 Long term (current) use of anticoagulants; Z99.81 Dependence on supplemental oxygen; Z79.4 Long term (current) use of insulin
CPT/HCPCS: 10084

== ENCOUNTER → 2018-09-18 | Outpatient (CLI) | payer OTHER ==
[~2018-09-18] MED LIST changes: +ATENOLOL 50MG T50 MG PO; +AUGMENTIN 875-1 EACH PO
== END ==
LOC: RAD 09:25
DX: J98.11 Atelectasis (principal); I51.7 Cardiomegaly

== ENCOUNTER 2018-09-27 19:11 | Emergency (ER) | payer OTHER ==
[~2018-09-27] VITALS: Ht 195.6 cm; Wt 144.2 kg
[2018-09-27 19:54] LABS: HEMATOCRIT 34.6 % (42.0-52.0); HEMOGLOBIN 11.7 gm/dL (14.0-18.0); MCH 29.6 pg (26.0-34.0); MCHC 33.8 g/dL (28.0-37.0); MCV 87.6 fL (80.0-100.0); PLATELET COUNT 168 thou/uL (150-400); RBC 3.94 mil/uL (4.50-6.00); RDW 15.6 % (10.5-14.5); WBC 8.3 thou/uL (4.0-11.0)
[2018-09-27 19:55] LABS: ANION GAP 5 mmol/L (7-16); BUN 15 mg/dL (7-18); CALCIUM 8.9 mg/dL (8.5-10.1); CHLORIDE 100 mmol/L (98-107); CO2 37 mmol/L (21-32); CREATININE 1.1 mg/dL (0.7-1.3); GLUCOSE 66 mg/dL (74-106); POTASSIUM 3.5 mmol/L (3.5-5.1); SODIUM 142 mmol/L (136-145)
[2018-09-27 20:03] LABS: ALBUMIN 3.3 g/dL (3.4-5.0); SGOT 20 U/L (15-37); SGPT 11 U/L (30-65); TOTAL BILIRUBIN 0.5 mg/dL (<0.1-1.0); TOTAL PROTEIN 7.4 g/dL (6.4-8.2); TROPONIN-I <0.06 ng/mL (<0.06)
[2018-09-27 21:03] LABS: ATYPICAL LYMPHS 8 %
[2018-09-27 21:04] LABS: LARGE PLATELETS OCCASIONAL
[2018-09-27 21:16] LABS: PROTIME 31.6 Seconds (9.3-11.4)
[2018-09-27 22:28] VITALS: BP 115/60
--- NOTE | 2018-09-28 12:02 | EKG ---
[place] [address] [address] [facility] [place] [address] ELECTROCARDIOGRAM REPORT Name: VALENTE HUA Room #: DEP Piper#: [id number] Admission: 09/27/18 Attend Phys: Discharge: 09/27/18 Date of : 40 Report #: [id number] THIS REPORT FOR: //name// [facility] ED Test Date: 2018-09-27 Test Time: 19:12:28 Pat Name: VALENTE HUA Department: Room: Gender: M Nurse Transitional: : 1940 Requested By: Jessie Paulino Order Number: [id number] MD: Pritesh Aleman Measurements Intervals [place] Rate: 113 P: IN: QRS: 10 QRSD: 163 T: 33 QT: 387 QTc: 531 Interpretive Statements Atrial fibrillation Right bundle branch block ST depr, anterolateral lds Compared to ECG 09/03/2018 09:24:20 No significant change was found Electronically Signed On 09-28-2018 12:02:36 CLINIC RECEPTIONIST by Pritesh Aleman [email or web address] <ELECTRONICALLY SIGNED> By: Pritesh Aleman MD, [facility] 09/28/18 1202 11 11 Pritesh Aleman MD, FACC /EPI
== END 2018-09-27 22:31 | disposition home or self-care (01) ==
LOC: ER 19:11
PROVIDERS: Student in an Organized Health Care Education/Training Program
DX: I11.0 Hypertensive heart disease with heart failure (principal); E11.40 Type 2 diabetes mellitus with diabetic neuropathy, unspecified; G47.33 Obstructive sleep apnea (adult) (pediatric); K21.9 Gastro-esophageal reflux disease without esophagitis; I48.91 Unspecified atrial fibrillation; E78.00 Pure hypercholesterolemia, unspecified; M10.9 Gout, unspecified; E66.9 Obesity, unspecified

== ENCOUNTER 2018-10-01 00:48 | Inpatient (IN) | payer OTHER ==
[2018-10-01] VITALS (7 sets, daily range): BP systolic 115–144; BP diastolic 64–80
[~2018-10-01] VITALS: Ht 195.6 cm; Wt 157.2 kg
--- NOTE | ~2018-10-01 | HC ---
[facility] [place] [address] CONSULTATION Name: VALENTE UHA Room #: 215-P ADM IN M.R.#: [id number] Admission: 10/01/18 Attend Phys: Sathish Andersen MD Discharge: Date of : 40 Report #: [id number] THIS REPORT FOR: //name// CC: Sathish Lopez DATE OF SERVICE: 10/06/2018 HISTORY OF PRESENT ILLNESS: The patient is a 77-year-old -[place] male admitted with acute on chronic congestive heart failure, acute on chronic respiratory failure, history of cardiomyopathy, atrial fibrillation, COPD, O2 dependent. He has diabetes mellitus type 2 with peripheral neuropathy with premorbid ankle dorsiflexor weakness and has bilateral AFOs. We are seeing him in rehabilitation medicine consultation. He has generalized weakness and debilitation with his multiple medical comorbidities and ongoing hospitalization. PAST MEDICAL HISTORY: Includes the history of O2 dependent, COPD, diabetes mellitus type 2, irritable bowel syndrome, GERD, hypertension, diabetic neuropathy, cardiomyopathy, hypercholesterolemia, gout, obesity. He is noted to have severe peripheral neuropathy and used a motorized scooter, prior small-bowel obstruction. MEDICATIONS: Please see the full medication listing. This includes vitamins, herbals, and supplements. HABITS: No history of tobacco or alcohol abuse. SOCIAL HISTORY: Lives in a house with . There is a woman that comes in daily to get him dressed, although he indicated that she had quit. He thinks that his could assist him some. She did help him with getting on and off the toilet. He typically uses a scooter, although he could use the walker for short distances. ALLERGIES: No known drug allergies. REVIEW OF SYSTEMS: No current complaints of chest pain, shortness of breath, abdominal discomfort. He does have some shortness of breath with increased activity. He has bilateral ankle dorsiflexor weakness. PHYSICAL EXAMINATION: GENERAL: This is a 72-year-old pleasant, obese -[place] male in no obvious distress. The patient is alert. VITAL SIGNS: Last recorded temperature 98, pulse 90, respirations 18, blood pressure 124/72. [facility] [address] [place] [address] CONSULTATION Name: VALENTE HUA HEMINGFORD Room #: 215-P [facility] IN M.R.#: [id number] Admission: 10/01/18 Attend Phys: Sathish Andersen MD Discharge: Date of : 40 Report #: [id number] HEENT: Appeared to be benign. NEUROLOGIC: Cranial nerves grossly intact. He is on nasal prong O2, currently at 4 liters. He has functional range of motion of both upper extremities. Strength is grade 4-/5. DTRs are trace to 1. Lower extremities, no focal calf swelling, functional range of motion with strength grade 4-/5 proximally and distally. He is more of a 3. He does have some decreased sensation to proprioception large toe on the left. Functionally, he is contact guard transfers with roller walker and he took 3 steps min assist front-wheeled walker. ASSESSMENT: This is a 72-year-old -[place] male with the following problem list: 1. Acute on chronic congestive heart failure. 2. Acute on chronic respiratory failure. 3. Cardiomyopathy. 4. O2 dependent chronic obstructive pulmonary disease. 5. Atrial fibrillation. 6. Hypertension. 7. Diabetes mellitus type 2. 8. Exogenous obesity. PLAN: Note that consideration for a skilled facility stay is underway. He has already been at [facility] and this is being checked in too. Note that this is a [facility] contracted facility. Would agree with these plans as are underway. Thank you, for asking us to assist in this patient's care. By: [id number] Martell Gonzalez MD /nt
[2018-10-01 01:27] LABS: HEMATOCRIT 34.1 % (42.0-52.0); HEMOGLOBIN 11.8 gm/dL (14.0-18.0); MCH 29.9 pg (26.0-34.0); MCHC 34.7 g/dL (28.0-37.0); MCV 86.1 fL (80.0-100.0); PLATELET COUNT 150 thou/uL (150-400); RBC 3.96 mil/uL (4.50-6.00); RDW 15.4 % (10.5-14.5)
[2018-10-01 01:36] LABS: ANION GAP 5 mmol/L (7-16); BUN 17 mg/dL (7-18); CHLORIDE 98 mmol/L (98-107); CO2 37 mmol/L (21-32); CREATININE 1.1 mg/dL (0.7-1.3); GLUCOSE 158 mg/dL (74-106); POTASSIUM 4.1 mmol/L (3.5-5.1); SODIUM 140 mmol/L (136-145)
[2018-10-01 01:44] LABS: SGOT 13 U/L (15-37); SGPT 9 U/L (30-65); TOTAL BILIRUBIN 0.4 mg/dL (<0.1-1.0); TROPONIN-I <0.06 ng/mL (<0.06)
[2018-10-01 01:46] LABS: MAGNESIUM 0.9 mg/dL (1.8-2.4)
--- NOTE | 2018-10-01 01:46 | NUR ---
PHYSICIAN AWARE. CRITICAL LAB VALUE MAGNESIUM 0.9
[2018-10-01 01:53] LABS: ABSOLUTE NEUTROPHILS 2.6 thou/uL (1.4-8.2)
[2018-10-01 01:55] LABS: PLATELET ESTIMATE NORMAL; POLYCHROMASIA OCCASIONAL
--- NOTE | 2018-10-01 06:19 | NUR ---
NEW ADMIT. AO X 4. SOB ON EXERTION . ON 5L OF , REPORTED THAT IS HIS HOME USE. DENIES CHEST PAIN, N/V.DIMINISHED LUNG SOUNDS. LOW MAGNESIUM, BEING REPLACED . ON IV LESIX. DIABETIC .
--- NOTE | 2018-10-01 08:10 | EKG ---
[address] [address] ELECTROCARDIOGRAM REPORT Name: VALENTE HUA Room #: 215-P ADM IN M.R.#: [id number] Admission: 10/01/18 Attend Phys: Sathish Andersen MD Discharge: Date of : 40 Report #: [id number] THIS REPORT FOR: //name// [facility] ED Test Date: 2018-10-01 Test Time: 00:52:05 Pat Name: VALENTE HUA Department: Room: 170 Gender: M Supervisor Cured Meats: LISBET : 1940 Requested By: Sudarshan Gaspar Order Number: [id number] MD: Pritesh Aleman Measurements Intervals [place] Rate: 67 P: MD: QRS: -1 QRSD: 169 T: 8 QT: 465 QTc: 491 Interpretive Statements Atrial fibrillation Right bundle branch block Compared to ECG 09/27/2018 19:12:28 No significant changes Electronically Signed On 10-01-2018 8:10:16 SERIALS LIBRARIAN by Pritesh Aleman [email or web address] <ELECTRONICALLY SIGNED> By: Pritesh Aleman MD, [facility] 10/01/18 0810 Pritesh Aleman MD, FACC /EPI
--- NOTE | 2018-10-01 15:07 | NUR ---
patient admits with CHF. He resides with in independent home. He has walker, cane, scooter, wc, nebulizer, home oxygen and cpap with [facility]. Parts Washer reports ambulating with walker or cane in home and scooter in community. He reports he and both drive. he reports on service with [facility]. Message to [facility] to confirm. Plan home with HH. Therapy evals in process.
--- NOTE | 2018-10-01 20:27 | NUR ---
ASSUMED CARE OF PT AT SHIFT CHANGE. ASSESSMENTS CHARTED. MEDS GIVEN PER NOV. PT AOX4, VSS, NO C/O PAIN. DENIES CHEST PAIN. O2 SATS WNL ON 5 L O2, PT SOB WITH EXERTION, RESOLVING WITH REST. FAMILY CALLED THIS SHIFT AND WAS UPDATED ON POC. URINE OUTPUT ADEQUATE, PT BEING DIURESED. DENIES ANY FURTHER NEEDS AT THIS TIME. WILL CONTINUE TO MONITOR AND FOLLOW POC.
[2018-10-02 03:45] LABS: CREATININE 1.1 mg/dL (0.7-1.3); POTASSIUM 4.8 mmol/L (3.5-5.1)
[2018-10-02 03:46] LABS: INR 2.7
[2018-10-02 04:09] LABS: ABSOLUTE NEUTROPHILS 7.8 thou/uL (1.4-8.2); BASOPHILS 0.2 % (0.0-2.0); HEMATOCRIT 32.9 % (42.0-52.0); HEMOGLOBIN 11.2 gm/dL (14.0-18.0); LYMPHOCYTES 12.2 % (24.0-44.0); MCH 29.8 pg (26.0-34.0); MCV 87.7 fL (80.0-100.0); MONOCYTES 11.5 % (1.0-8.0); PLATELET COUNT 161 thou/uL (150-400); POLYS 76.1 % (36.0-66.0); RBC 3.75 mil/uL (4.50-6.00); RDW 15.3 % (10.5-14.5); WBC 10.3 thou/uL (4.0-11.0)
[2018-10-02 04:28] VITALS: BP 134/65
--- NOTE | 2018-10-02 05:40 | NUR ---
0540 - PT STATED THAT HE HAD A BAD DREAM THAT STARTLED HIM. HE TRIGGERED THE BED ALARM AND HIS NASAL CANNULA WAS OFF. DURING THE EARLY PART OF THE SHIFT HE WAS RECIEVING HE O2 THROUGH HIS AEROSOLIZER, HE THOUGHT IT WAS DONE AND PUT IT DOWN RESULTING IN A BRIEF PERIOD OF HYPOXIA WHICH WAS RAPIDLY CAUGHT AND QUICKLY RESOLVED. OTHERWISE NO OTHER EVENTS THROUGH THE NIGHT.
[2018-10-02 06:12] LABS: LARGE PLATELETS RARE
[2018-10-02 08:09] VITALS: BP 123/68
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
[2018-10-02 11:59] LABS: % SATURATION 18 % (20-39); IRON 44 ug/dL (65-175); TIBC 243 ug/dL (250-450)
[2018-10-02 12:15] VITALS: BP 133/62
[2018-10-02 12:19] LABS: TSH 0.198 uIU/mL (0.358-3.740)
--- NOTE | 2018-10-02 14:13 | NUR ---
Nutrition: Received consult for pt request for nutrition education. Pt admit with CHF, SOB. PMH: COPD, DM, HTN, morbid obesity, choly. Pt had reported a weight loss from 355# to 330# in 2017 and has had prior educations. Wts 300- 330# past year, obesity class 2. Diuresing. GI consult for bloating, early satiety. Gastric emptying study this afternoon. pt not available x 2 attempts to visit. BG 195-302. no A1C. Will followup for results of study to determine education needs 10/03/18.
[2018-10-02 16:40] VITALS: BP 115/71
[2018-10-02 20:23] VITALS: BP 130/68
[2018-10-03] VITALS (7 sets, daily range): BP systolic 101–148; BP diastolic 56–80
--- NOTE | 2018-10-03 05:20 | NUR ---
NAEON. PT DID HAVE A HEADACHE WHICH WAS COVERED WITH APAP. NO STOOL THROUGH THE NIGHT.
[2018-10-03 05:37] LABS: INR 2.7; PROTIME 27.9 Seconds (9.3-11.4)
--- NOTE | 2018-10-03 15:26 | NUR ---
[facility] alerted for possible wkend dc and resumption of hh services. Their fax number for orders is [phone] and oncall nurse is [phone].Pt has needed dme in place.
--- NOTE | 2018-10-04 01:21 | NUR ---
PT IS ALERT AND ORIENTED X 4, HOWEVER HE IS CONFUSED AT TIMES. PT DENIES PAIN AT THIS TIME. HE DOES STATE THAT HE FEELS A LITTLE LIGHT HEADED WHEN HE FIRST GETS OUT OF BED, BUT IT RESOLVES. THE PATIENT THINKS THAT THIS MAY BE DUE TO AN INCREAE IN HIS BLOOD PRESSURE MEDICATIONS. PT'S SELF-VOICED GOAL TONIGHT IS TO SLEEP. WILL CONTINUE TO MONITOR.
[2018-10-04 05:43] VITALS: BP 135/79
[2018-10-04 06:31] LABS: INR 2.8; PROTIME 29.1 Seconds (9.3-11.4)
[2018-10-04 08:00] VITALS: BP 123/72
[2018-10-04 08:26] LABS: ANION GAP < 0 mmol/L (7-16); BUN 24 mg/dL (7-18); CALCIUM 9.4 mg/dL (8.5-10.1); CHLORIDE 95 mmol/L (98-107); CO2 43 mmol/L (21-32); GLUCOSE 186 mg/dL (74-106); SODIUM 136 mmol/L (136-145)
[2018-10-04 12:21] VITALS: BP 131/52
[2018-10-04 16:00] VITALS: BP 111/63
[2018-10-04 19:45] VITALS: BP 137/64
--- NOTE | 2018-10-04 23:28 | NUR ---
PT IS ALERT TO SELF AND SOMETIMES PLACE. HE WAS PLEASANT AT THE BEGINNING OF THE SHIFT, HOWEVER HE BECAME VERY IRRITATED AND CONFUSED THIS EVEING.HE STATED THAT HE WAS NOT SURE WHERE HE WAS AND HE WANTED TO GO HOME. THE PATIENT WAS KICKING AT THE STAFF AND BECOMING UPSET. SECURITY WAS CALLED. THE MANUFACTURING CHIEF ENGINEER WAS CALLED. HALDOL WAS GIVEN. THE PATIENT IS NOW ASLEEP. WILL CONTINUE TO MONITOR.
[2018-10-05 03:34] VITALS: BP 126/77
[2018-10-05 05:57] LABS: HEMATOCRIT 36.2 % (42.0-52.0); HEMOGLOBIN 12.1 gm/dL (14.0-18.0); MCH 29.1 pg (26.0-34.0); MCHC 33.3 g/dL (28.0-37.0); MCV 87.5 fL (80.0-100.0); RBC 4.14 mil/uL (4.50-6.00); RDW 15.5 % (10.5-14.5); WBC 8.1 thou/uL (4.0-11.0)
[2018-10-05 06:07] LABS: INR 2.1
[2018-10-05 06:10] LABS: ALBUMIN 3.1 g/dL (3.4-5.0); BUN 22 mg/dL (7-18); CALCIUM 9.7 mg/dL (8.5-10.1); CHLORIDE 93 mmol/L (98-107); GLUCOSE 251 mg/dL (74-106); SGOT 16 U/L (15-37); SGPT 10 U/L (30-65); SODIUM 136 mmol/L (136-145); TOTAL BILIRUBIN 0.7 mg/dL (<0.1-1.0)
[2018-10-05 06:13] LABS: CO2 > 45 mmol/L (21-32)
[2018-10-05 06:49] LABS: BE(vivo) 16.6 mmol/L (-2 to +3); HCO3 45.1 mmol/L (22.0-26.0); PCO2 73.4 mmHg (35.0-45.0); PO2 91.3 mmHg (80.0-100.0); pH 7.406 (7.360-7.450); sO2 96.7 % (92.0-98.0)
[2018-10-05 08:00] VITALS: BP 125/77
[2018-10-05 09:00] LABS: BUN 22 mg/dL (7-18); CALCIUM 10.1 mg/dL (8.5-10.1); CHLORIDE 92 mmol/L (98-107); GLUCOSE 243 mg/dL (74-106); POTASSIUM 3.9 mmol/L (3.5-5.1); SODIUM 136 mmol/L (136-145)
[2018-10-05 09:03] LABS: CO2 > 45 mmol/L (21-32)
--- NOTE | 2018-10-05 10:39 | NUR ---
PATIENT DOES SEEM QUITE CONFUSED THIS AM. HE KEEPS ON SAYING HE IS READY TO GO HOME. ASKED WHERE HE THINKS HE IS AND HE STATES " I AM UP [place]. I AM GOING HOME NOW". REORIENTED TO PLACE AND TIME AND THE REASON HE IS HEAR. HE DOES STATE THAT HE DOES FEEL BETTER. HE IS ALERT ORIENTED X1. USES URINAL AT THIS TIME. WILL CONT WITH PLAN OF CARE.
[2018-10-05 12:08] VITALS: BP 151/70
[2018-10-05 16:00] VITALS: BP 151/55
[2018-10-05 17:30] VITALS: BP 142/68
[2018-10-05 20:10] VITALS: BP 124/73
[2018-10-06 04:07] LABS: HEMATOCRIT 38.4 % (42.0-52.0); HEMOGLOBIN 12.9 gm/dL (14.0-18.0); MCH 29.6 pg (26.0-34.0); MCHC 33.7 g/dL (28.0-37.0); RBC 4.36 mil/uL (4.50-6.00); RDW 15.5 % (10.5-14.5); WBC 8.4 thou/uL (4.0-11.0)
[2018-10-06 04:16] VITALS: BP 130/80
[2018-10-06 04:27] LABS: INR 2.2; PROTIME 23.3 Seconds (9.3-11.4)
[2018-10-06 04:35] LABS: ALBUMIN 3.2 g/dL (3.4-5.0); CALCIUM 10.2 mg/dL (8.5-10.1); POTASSIUM 4.1 mmol/L (3.5-5.1); TOTAL BILIRUBIN 0.8 mg/dL (<0.1-1.0); TOTAL PROTEIN 7.2 g/dL (6.4-8.2)
--- NOTE | 2018-10-06 05:30 | NUR ---
END OF SHIFT NOTE: NO ACUTE EVENTS OVERNIGHT, VSS, NO DISTRESS NOTED. ASSESSMENTS DOCUMENTED. PT INCREASINGLY FORGETFUL THROUGHOUT THE NIGHT, FREQ REORIENTATION REQUIRED. PT DID WEAR CPAP TONIGHT FROM AROUND [phone]. ONE DOSE OF HALDOL GIVEN, DID NOT SEEM TO HELP PATIENT. TYLENOL GIVEN X1 OVERNIGHT FOR VALENCIA, RESOLVED. PT VOIDING PER URINAL. VERY PRODUCTIVE COUGH TONIGHT, THICK YELLOW SPUTUM NOTED. PT DID NOT SLEEP WELL, VERY RESTLESS. SSI CONTINUES. PLAN FOR 2D ECHO TODAY. PROGRESSING TOWARDS GOAL/POC.
[2018-10-06 08:10] VITALS: BP 110/55
--- NOTE | 2018-10-06 11:20 | 2DMMODE ---
[facility] [place] [address] 2 D/M-MODE ECHOCARDIOGRAM Name: VALENTE HUA SKIATOOK Room #: 215-P ADM IN M.R.#: [id number] Admission: 10/01/18 Attend Phys: Sathish Andersen MD Discharge: Date of : 40 Date of Service: 10/06/18 1120 Report #: [id number] THIS REPORT FOR: //name// APPROVED REPORT Study performed: 10/06/2018 09:37:33 EXAM: Comprehensive 2D, Doppler, and color-flow Echocardiogram Patient Location: Bedside Room #: [facility] Status: routine BSA: 2.85 HR: 79 bpm BP: 110/55 mmHg Rhythm: NSR Other Information Study Quality: Fair Indications Hypotension Congestive Heart Failure COPD Diabetes Echo Enhancing Agent Indication: Endocardial border delineation Agent(s) / Amount(s) Used: Optison 3 cc 2D Dimensions RVDd: 51.15 mm IVSd: 17.33 (7-11mm) LVOT Diam: 23.67 (18-24mm) LVDd: 35.09 mm PWd: 14.00 (7-11mm) Ascending Ao: 32.92 (22-36mm) LVDs: 24.84 (25-40mm) Aortic Root: 36.11 mm IVC: 26.00 mm Volumes Left Atrial Volume (Systole) Single Plane 4CH: 75.63 mL Single Plane 2CH: 97.89 mL LA ESV Index: 34.00 mL/m2 Aortic Valve AoV Peak Robert.: 0.95 m/s AO Peak Gr.: 3.59 mmHg LVOT Max P.36 mmHg LVOT Max V: 0.77 m/s [facility] [place] [address] 2 D/M-MODE ECHOCARDIOGRAM Name: VALENTE HUA SKIATOOK Room #: 215- ADM IN [facility].#: [id number] Admission: 10/01/18 Attend Phys: Sathish Andersen MD Discharge: Date of : 40 Date of Service: 10/06/18 1120 Report #: [id number] [id number] Vmax: 3.56 cm2 Pulmonary Valve PV Peak Robert.: 0.97 m/s PV Peak Gr.: 3.79 mmHg Tricuspid Valve TR Peak Robert.: 2.69 m/s TR Peak Gr.: 29.09 mmHg PA Pressure: 39.00 mmHg Left Ventricle The left ventricle is normal size. Mild to moderate concentric left ventricular hypertrophy. Left ventricular systolic function is mild to moderately decreased. LVEF is 40-45%. This study is not technically sufficient to allow evaluation of the LV diastolic function due to atrial fibrillation. Right Ventricle Right ventricle is dilated. Atria Left atrium is borderline dilated. Right atrium is dilated. Aortic Valve The aortic valve is normal in structure. No aortic regurgitation is present. There is no aortic valvular stenosis. Mitral Valve The mitral valve is normal in structure. Trace to mild mitral regurgitation. No evidence of mitral valve stenosis. Tricuspid Valve The tricuspid valve is normal in structure. There is trace tricuspid regurgitation. Estimated PAP 39 mmHg. There is mild pulmonary hypertension. Pulmonic Valve The pulmonary valve is normal in structure. Trace pulmonic regurgitation. Great Vessels The aortic root is normal in size. IVC is dilated and collapses <50% with inspiration. [facility] [address] [address] 2 D/M-MODE ECHOCARDIOGRAM Name: VALENTE HUA SKIATOOK Room #: 215-P ADM IN M.R.#: [id number] Admission: 10/01/18 Attend Phys: Sathish Andersen MD Discharge: Date of : 40 Date of Service: 10/06/18 1120 Report #: [id number] Pericardium There is no pericardial effusion. <Conclusion> The left ventricle is normal size. Mild to moderate concentric left ventricular hypertrophy. Left ventricular systolic function is mild to moderately decreased. This study is not technically sufficient to allow evaluation of the LV diastolic function due to atrial fibrillation. Right ventricle is dilated. Left atrium is borderline dilated. Right atrium is dilated. There is no aortic valvular stenosis. Trace to mild mitral regurgitation. There is trace tricuspid regurgitation. Estimated PAP 39 mmHg. There is mild pulmonary hypertension. <ELECTRONICALLY SIGNED> By: Enrrique Cruz MD 10/06/18 1120 19 19 Enrrique Cruz MD /INF
[2018-10-06 12:17] VITALS: BP 124/72
--- NOTE | 2018-10-06 12:51 | NUR ---
Met with patient and at bedside. Discussed therapy evals and offered option of rehab prior to home. Both and patient agree would be very beneficial. They are interested in 5N if possible. Gave Izaiah Campos list of contracted facilities. Patient reports he was at [facility] in past. Was not a good experience but wants to try [facility] as prefers. referral to [facility] Mary.
--- NOTE | 2018-10-06 13:43 | NUR ---
FAXED REFERRAL TO [facility] SPOKE WITH GRACIE IN ADM. SHE RECEIVED REFERRAL AND WILL REVIEW. DCP TO FOLLOW.
[2018-10-06 14:40] VITALS: BP 122/73
--- NOTE | 2018-10-06 15:27 | NUR ---
rec call from [facility] patient with outstanding bill of $7400 they are unable to accept with outstanding balance. Sp with patient who reports [facility] rec [facility] He requested need to discuss with . Called and left message with to call [employer].
--- NOTE | 2018-10-06 15:43 | NUR ---
ASSUMED CARE OF PT AT 0700. PT A&OX4, UP WITH ONE, GAIT BELT AND WALKER. PT'S BEHAVIOR APPROPRIATE THIS SHIFT, HOWEVER PT HAD EPISODE OF CONFUSION AFTER A NAP. PT COMMUNICATED THAT HE REMEMBERS HIS FORGETFUL EPISODES (VERY CONFUSED PER RATE INSERTER) AND IS CONCERNED TO WHAT IS CAUSING THIS. DR. MARTÍNEZ NOTIFIED AND NO NEW ORDERS AT THIS TIME. WILL CONT TO MONITOR BEHAVIOR/CONFUSION. VISITED TODAY AND CASE MANAGEMENT MEET WITH PT AND REGARDING REHAB. PT VITALS WITHIN NORMAL LIMITS AND PT WAS AFIB WITH CONTROLLED RATE ON TELEMETRY. WILL CONT WTIH POC.
[2018-10-06 21:56] VITALS: BP 138/64
--- NOTE | 2018-10-07 00:23 | NUR ---
PT IS ALERT AND ORIENTED X 4. DENIES PAIN AT THIS TIME. THE PATIENT WANTS TO MAKE SURE THAT HE IS GETTING STRONGER. APPARENTLY HIS HAS TOLD HIM THAT SHE REALLY DOES NOT WANT HIM TO COME HOME. HE SEEMS CONFUSED ABOUT WHAT SHE WANTS, HOWEVER HE STATES THAT SHE EITHER WANTS HIM TO GO TO REHAB TO GET STRONGER OR GO TO A SKILLED LIVING FACILITY. THE PATIENT STATES THAT THEY HAVE BEEN OVER 29 YEARS AND HE DOES NOT UNDERSTAND WHAT IS GOING ON. THE PATIENT IS TRYING TO WEAR THE CPAP TONIGHT. HE IS CONCERNED WHY HE FEELS CONFUSED SOMETIMES WHEN HE WAKES UP. HE WANTS TO KNOW WHAT IS GOING ON WITH HIM. ASSESSMENT CHARTED. WILL CONTINUE TO MONITOR.
--- NOTE | 2018-10-07 03:27 | NUR ---
PT HAS WOKE UP CONFUSED. HE WAS YELLING FOR THE 'NURSE,' WHILE TRYING TO GT OUT OF BED WITH HIS O2 OFF. THE PATIENT WAS ABLE TO BE REORIENTED AFTER A FEW MINUTES. VITALS TAKEN. HE TRIED TO TOLERATE THE CPAP LST NIGHT FOR A FEW MINUTES. HE CONTINUED TO COMPLAIN THAT THE MASK WAS 'COLD.' HE FINALLY STATED THAT HE COULD NOT TOLERATE IT. THE PATIENT'S APPARENTLY BROUGHT THE PATIENT'S HOME CPAP MACHINE IN, HOWEVER SHE FORGOT THE MASK. THE PATIENT THEREFORE CAN NOT WEAR IT THIS EVENING. IT IS UNCLEAR IF THE PATIENT ACTUALLY USES THE CPAP AT HOME. HE DID STATE THAT HE DOES NOT KNOW HOW TO CLEAN THE HOSE AND MASK. HE SAYS HE BUYS A NEW ONE EVERY FEW MONTHS.
[2018-10-07 05:54] VITALS: BP 134/72
[2018-10-07 07:31] VITALS: BP 115/65
--- NOTE | 2018-10-07 09:36 | NUR ---
FAXED REFERRAL TO [facility] WITH ERIC IN ADM. OF REFERRAL FAXED AND THAT PT. REQUESTING PVT. FAXED REFERRAL TO [facility]. ADM. LIASON THAT REFERRAL FAXED. DCP TO FOLLOW.
[2018-10-07 16:06] VITALS: BP 122/45
--- NOTE | 2018-10-07 16:20 | NUR ---
SPOKE WITH PATIENT AND INTERESTED IN [employer]. REFERRAL TO FACILITY TO SEEK AUTH FOR SKILLED PLACEMENT.
--- NOTE | 2018-10-07 17:12 | NUR ---
ASSUMED CARE OF PT AT 0700. PT A&OX4, UP WITH GAIT BELT AND WALKER. PT'S BEHAVIOR APPROPRIATE AND PT HAD NO EPISODES OF CONFUSION THIS SHIFT. PT'S VITALS WITHIN NORMAL LIMITS AND PT WAS AFIB, CONTROLLED RATE, ON TELEMETRY. PT UP WITH PHYSICAL THERAPY TO AMBULATE UNIT AND UP TO CHAIR FOR LUNCH. PT PERFORMED SELF CARE: BRUSHED TEETH, WASHED UNDERARMS. WILL CONT WITH POC.
[2018-10-07 20:06] VITALS: BP 107/63
--- NOTE | 2018-10-08 03:49 | NUR ---
PT. AOX4 EARLY ON THE NIGHT; NO C/O PAIN; BED BAD GIVEN; VS WNL; FU=[id number]; INSULING GIVEN PER ORDER; AFTER MIDNIGHT PT. WAKED UP CONFUSED X 2 ; RE-ORIENTATED ON PLACE AND SITUATION; ST. UNDERSTANDING; ABLE TO REST MOST OF THE NIGHT; NO AGITATION DURING THE NIGHT; ASSESSMENT CHARGED; FOLLOWING POC.
[2018-10-08 04:26] LABS: CALCIUM 9.6 mg/dL (8.5-10.1); CREATININE 1.3 mg/dL (0.7-1.3); POTASSIUM 3.8 mmol/L (3.5-5.1)
[2018-10-08 04:58] VITALS: BP 124/70
[2018-10-08 08:14] VITALS: BP 166/83
[2018-10-08 08:30] VITALS: BP 112/57
--- NOTE | 2018-10-08 09:58 | NUR ---
Follow up: Tolerating po intake. Reviewed low Na diet with pt. Likely discharge today to skilled facility. Recommend add carb controlled diet in addition to 2g Na. Low nutrition risk
[2018-10-08 12:10] VITALS: BP 105/63
--- NOTE | 2018-10-08 15:01 | NUR ---
RADHA SPOKE WITH LUKAS IN ADM. AT [facility] AND SHE RECEIVED AUTH AND ARRANGED TRANSPORTATION VIA [employer] [facility] FOR 1730 TODAY. SW WILL NOTIFY FAMILY OF DISCHARGE AND TIME OF TRANSPORTATION. UNIT NOTIFIED AND CHART COPY PER US. RN TO CALL REPORT TO [phone].
[2018-10-08] MEDS ORDERED: PEPCID20 MG PO (15:21)
[2018-10-08] MEDS ORDERED: TYLENOL325 MG PO (15:21)
[2018-10-08] MEDS ORDERED: MIRALAX17 GM PO (15:21)
[2018-10-08] MEDS ORDERED: XIFAXAN550 MG PO (15:21)
[2018-10-08 15:39] VITALS: BP 103/55
--- NOTE | 2018-10-08 15:57 | NUR ---
PATIENT HAS AUTH FOR [employer] [place]. FAXED ORDERS. CHART COPIED. NOTIFIED PATIENT AND . TRANSPORT AT 1730 VIA [employer] [facility]. NO FURTHER NEEDS
--- NOTE | 2018-10-08 16:54 | NUR ---
ASSUMED CARE OF PT AT 0700. PT A&OX4, UP TO CHAIR FOR BREAKFAST. PT COMMUNICATES UNDERSTANDING OF DISCHARGE TO SKILLED FACILITY TODAY. PT VITALS WITHIN NORMAL LIMITS AND PT WAS AFIB, CONTROLLED RATE ON TELEMETRY. PT COOPERATIVE AND WALKED WITH PHYSICAL THERAPY TODAY. HAD BM TODAY (WAS CONSTIPATED).
[2018-10-08 17:18] VITALS: BP 129/63
== END 2018-10-08 18:00 | DRG 291 ==
LOC: ER 00:48 → 2N 02:38 → EROBS 02:38 → 2N 03:39
PROVIDERS: Emergency Medicine; Hospitalist; Internal Medicine Cardiovascular Disease; Internal Medicine Gastroenterology; Nurse Practitioner Acute Care; Nurse Practitioner Gerontology; ADMIT Hospitalist
DX: I11.0 Hypertensive heart disease with heart failure (principal); J96.21 Acute and chronic respiratory failure with hypoxia; J96.22 Acute and chronic respiratory failure with hypercapnia; Z68.41 Body mass index [BMI] 40.0-44.9, adult; K43.0 Incisional hernia with obstruction, without gangrene; I47.2 Ventricular tachycardia; I50.43 Acute on chronic combined systolic (congestive) and diastolic (congestive) heart failure; I42.9 Cardiomyopathy, unspecified; I48.91 Unspecified atrial fibrillation; J44.9 Chronic obstructive pulmonary disease, unspecified; G47.33 Obstructive sleep apnea (adult) (pediatric); I48.2 Chronic atrial fibrillation; E11.42 Type 2 diabetes mellitus with diabetic polyneuropathy; K57.90 Diverticulosis of intestine, part unspecified, without perforation or abscess without bleeding; K21.9 Gastro-esophageal reflux disease without esophagitis; R68.81 Early satiety; E83.42 Hypomagnesemia; K58.1 Irritable bowel syndrome with constipation; D64.9 Anemia, unspecified; E66.09 Other obesity due to excess calories; E78.00 Pure hypercholesterolemia, unspecified; M10.9 Gout, unspecified; Z99.81 Dependence on supplemental oxygen; Z87.828 Personal history of other (healed) physical injury and trauma; Z90.49 Acquired absence of other specified parts of digestive tract; Z79.01 Long term (current) use of anticoagulants; Z79.4 Long term (current) use of insulin; Z79.51 Long term (current) use of inhaled steroids; Z79.899 Other long term (current) drug therapy; Z80.0 Family history of malignant neoplasm of digestive organs; Z81.1 Family history of alcohol abuse and dependence
CPT/HCPCS: 10081

== ENCOUNTER 2019-01-22 11:24 | Emergency (ER) | payer OTHER ==
[~2019-01-22] VITALS: Ht 198.1 cm; Wt 146.0 kg
[~2019-01-22 11:24] MED LIST changes: +MIRALAX17 GM PO; +PEPCID20 MG PO; +XIFAXAN550 MG PO
[2019-01-22 12:53] LABS: HEMATOCRIT 31.5 % (42.0-52.0); HEMOGLOBIN 10.9 gm/dL (14.0-18.0); MCH 30.4 pg (26.0-34.0); MCHC 34.5 g/dL (28.0-37.0); RBC 3.58 mil/uL (4.50-6.00); RDW 15.4 % (10.5-14.5); WBC 7.1 thou/uL (4.0-11.0)
[2019-01-22 13:03] LABS: ANION GAP 5 mmol/L (7-16); BUN 20 mg/dL (7-18); CHLORIDE 99 mmol/L (98-107); CO2 34 mmol/L (21-32); CREATININE 1.2 mg/dL (0.7-1.3); GLUCOSE 224 mg/dL (74-106); POTASSIUM 3.8 mmol/L (3.5-5.1); SODIUM 138 mmol/L (136-145)
[2019-01-22 13:11] LABS: TROPONIN-I <0.06 ng/mL (<0.06)
[2019-01-22 13:13] LABS: NUCLEATED RBCS 1 /100WBC; PLATELET COUNT 120 thou/uL (150-400); PLATELET ESTIMATE NORMAL
[2019-01-22 14:01] LABS: INR 3.6; PROTIME 37.7 Seconds (9.3-11.4)
[2019-01-22 14:23] VITALS: BP 100/67
--- NOTE | 2019-01-22 17:06 | EKG ---
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 : 1940 Requested By: Joseluis Arriaga Order Number: [id number] MD: Gorge Roach Measurements Intervals [place] Rate: 75 P: OR: QRS: 4 QRSD: 172 T: 20 QT: 455 QTc: 509 Interpretive Statements Atrial fibrillation Right bundle branch block Compared to ECG 10/01/2018 00:52:05 No significant changes Electronically Signed On 01-22-2019 17:06:37 CDT by Gorge Roach [email or web address] ��������������������������������������������� <ELECTRONICALLY SIGNED> ���������������������������������������� By: Gorge Roach MD ��������������������������������������������� 01/22/19 1706 1153 1153 MD EDISON Issa
== END 2019-01-22 14:27 | disposition home or self-care (01) ==
LOC: ER 11:24
PROVIDERS: Emergency Medicine
DX: J81.1 Chronic pulmonary edema (principal); G47.33 Obstructive sleep apnea (adult) (pediatric); J44.9 Chronic obstructive pulmonary disease, unspecified; J96.10 Chronic respiratory failure, unspecified whether with hypoxia or hypercapnia; I48.2 Chronic atrial fibrillation; K58.9 Irritable bowel syndrome, unspecified; K21.9 Gastro-esophageal reflux disease without esophagitis; I10 Essential (primary) hypertension; E78.00 Pure hypercholesterolemia, unspecified; M10.9 Gout, unspecified; E66.9 Obesity, unspecified; E11.42 Type 2 diabetes mellitus with diabetic polyneuropathy; Z68.37 Body mass index [BMI] 37.0-37.9, adult; Z79.4 Long term (current) use of insulin; Z90.49 Acquired absence of other specified parts of digestive tract

== ENCOUNTER 2019-02-08 17:40 | Emergency (ER) | payer OTHER ==
[~2019-02-08] VITALS: Ht 198.1 cm; Wt 139.3 kg
[2019-02-08] MEDS ORDERED: AUGMENTIN 875-1 EACH PO (19:10)
[2019-02-08 19:34] VITALS: BP 138/79
--- NOTE | 2019-02-09 08:47 | EKG ---
[address] [address] ELECTROCARDIOGRAM REPORT Name: VALENTE HUA MARCE Room #: DEP Piper#: [id number] ������������������ Admission: 02/08/19 ������������������ Attend Phys: Discharge: 02/08/19 ������������������ Date of : 40 Report #: [id number] ����������������������������������������������������������������� [id number] THIS REPORT FOR: //name// [facility] ED Test Date: 2019-02-08 Test Time: 18:13:55 Pat Name: VALENTE HUA Department: Room: Gender: Bedspread Folder: jlstephanie : 1940 Requested By: Sudarshan Gaspar Order Number: [id number] MD: Gorge Roach Measurements Intervals [place] Rate: 97 P: OR: QRS: 12 QRSD: 167 T: 13 QT: 407 QTc: 517 Interpretive Statements Atrial fibrillation Ventricular premature complex Right bundle branch block Compared to ECG 01/22/2019 11:53:16 Ventricular premature complex(es) now present Electronically Signed On 02-09-2019 8:47:46 CDT by Gorge Roach [email or web address] ��������������������������������������������� <ELECTRONICALLY SIGNED> ���������������������������������������� By: Gorge Roach MD ��������������������������������������������� 02/09/19 0847 12 12 Gorge Roach MD /SHAN
== END 2019-02-08 19:35 | disposition home or self-care (01) ==
LOC: ER 17:40 → EDBD 17:40 → ER 19:35
DX: T38.3X1A Poisoning by insulin and oral hypoglycemic [antidiabetic] drugs, accidental (unintentional), initial encounter (principal); J18.8 Other pneumonia, unspecified organism; J44.9 Chronic obstructive pulmonary disease, unspecified; J96.10 Chronic respiratory failure, unspecified whether with hypoxia or hypercapnia; G47.33 Obstructive sleep apnea (adult) (pediatric); I48.2 Chronic atrial fibrillation; K58.9 Irritable bowel syndrome, unspecified; K21.9 Gastro-esophageal reflux disease without esophagitis; I10 Essential (primary) hypertension; E11.40 Type 2 diabetes mellitus with diabetic neuropathy, unspecified; E78.00 Pure hypercholesterolemia, unspecified; M10.9 Gout, unspecified; E66.9 Obesity, unspecified; Z68.35 Body mass index [BMI] 35.0-35.9, adult; Z79.4 Long term (current) use of insulin; Z90.49 Acquired absence of other specified parts of digestive tract; Y92.89 Other specified places as the place of occurrence of the external cause

== ENCOUNTER 2019-02-13 17:57 | Emergency (ER) | payer OTHER ==
[~2019-02-13] VITALS: Ht 198.1 cm; Wt 144.2 kg
[2019-02-13 19:07] LABS: HEMATOCRIT 31.5 % (42.0-52.0); MCH 30.7 pg (26.0-34.0); MCHC 34.8 g/dL (28.0-37.0); MCV 88.2 fL (80.0-100.0); PLATELET COUNT 132 thou/uL (150-400); RBC 3.58 mil/uL (4.50-6.00); RDW 15.4 % (10.5-14.5); WBC 9.4 thou/uL (4.0-11.0)
[2019-02-13 19:12] LABS: ANION GAP 9 mmol/L (7-16); BUN 23 mg/dL (7-18); CHLORIDE 99 mmol/L (98-107); CO2 30 mmol/L (21-32); CREATININE 1.3 mg/dL (0.7-1.3); GLUCOSE 93 mg/dL (74-106); POTASSIUM 3.9 mmol/L (3.5-5.1); SODIUM 138 mmol/L (136-145)
[2019-02-13 19:21] LABS: TROPONIN-I <0.06 ng/mL (<0.06)
[2019-02-13 19:59] LABS: ABSOLUTE NEUTROPHILS 6.7 thou/uL (1.4-8.2)
[2019-02-13 20:00] LABS: ANISOCYTOSIS 1+; LARGE PLATELETS OCCASIONAL; POLYCHROMASIA OCCASIONAL
[2019-02-13 20:40] LABS: APTT 43.7 Seconds (24.5-32.8); INR 2.4; PROTIME 24.6 Seconds (9.3-11.4)
[2019-02-13 21:56] VITALS: BP 129/59
--- NOTE | 2019-02-14 11:00 | EKG ---
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 Subramanian : 1939-11-06 Requested By: Hilda Beauchamp Order Number: [id number] MD: Pritesh Aleman Measurements Intervals [place] Rate: 79 P: CT: QRS: 25 QRSD: 177 T: 7 QT: 455 QTc: 522 Interpretive Statements Atrial fibrillation Right bundle branch block Compared to ECG 02/08/2019 18:13:55 Ventricular premature complex(es) no longer present Electronically Signed On 02-14-2019 11:00:22 CDT by Pritesh Aleman [email or web address] ��������������������������������������������� <ELECTRONICALLY SIGNED> ���������������������������������������� By: Pritesh Aleman MD, [facility] ��������������������������������������������� 02/14/191099 19 19 Pritesh Aleman MD, FAC /EPI
== END 2019-02-13 22:20 | disposition home or self-care (01) ==
LOC: EDBD 17:57 → ER 17:57
PROVIDERS: Emergency Medicine
DX: J44.1 Chronic obstructive pulmonary disease with (acute) exacerbation (principal); K21.9 Gastro-esophageal reflux disease without esophagitis; I10 Essential (primary) hypertension; E66.9 Obesity, unspecified; M10.9 Gout, unspecified; E11.40 Type 2 diabetes mellitus with diabetic neuropathy, unspecified; G47.33 Obstructive sleep apnea (adult) (pediatric); I48.2 Chronic atrial fibrillation

== ENCOUNTER 2019-03-10 16:11 | Emergency (ER) | payer OTHER ==
[~2019-03-10] VITALS: Ht 198.1 cm; Wt 140.6 kg
[2019-03-10 16:55] LABS: HEMATOCRIT 35.8 % (42.0-52.0); HEMOGLOBIN 12.1 gm/dL (14.0-18.0); MCH 30.5 pg (26.0-34.0); MCHC 33.8 g/dL (28.0-37.0); MCV 90.3 fL (80.0-100.0); PLATELET COUNT 145 thou/uL (150-400); RBC 3.97 mil/uL (4.50-6.00); RDW 15.9 % (10.5-14.5); WBC 11.5 thou/uL (4.0-11.0)
[2019-03-10 17:06] LABS: INR 2.1; PROTIME 21.6 Seconds (9.3-11.4)
[2019-03-10 17:10] LABS: ANION GAP 8 mmol/L (7-16); BUN 23 mg/dL (7-18); CALCIUM 9.6 mg/dL (8.5-10.1); CHLORIDE 100 mmol/L (98-107); CO2 32 mmol/L (21-32); CREATININE 1.4 mg/dL (0.7-1.3); GLUCOSE 129 mg/dL (74-106); MAGNESIUM 1.6 mg/dL (1.8-2.4); POTASSIUM 3.6 mmol/L (3.5-5.1); SODIUM 140 mmol/L (136-145); TROPONIN-I <0.06 ng/mL (<0.06)
[2019-03-10 17:30] LABS: ABSOLUTE NEUTROPHILS 6.2 thou/uL (1.4-8.2)
[2019-03-10 17:31] LABS: LARGE PLATELETS SEVERAL; TARGET CELLS 1+
[2019-03-10 17:59] VITALS: BP 131/75
--- NOTE | 2019-03-11 07:52 | EKG ---
[address] [place] [address] ELECTROCARDIOGRAM REPORT Name: VALENTE HUA Room #: DEP Piper#: [id number] ������������������ Admission: 03/10/19 ������������������ Attend Phys: Discharge: 03/10/19 ������������������ Date of : [birth year] Report #: [id number] ����������������������������������������������������������������� [id number] THIS REPORT FOR: //name// [facility] ED Test Date: 2019-03-10 Test Time: 16:25:15 Pat Name: VALENTE HUA Department: Room: Gender: M Hospital Orderly: MARY : 1939-11-06 Requested By: Joseluis Arriaga Order Number: [id number] MD: Pritesh Aleman Measurements Intervals [place] Rate: 112 P: [place]: QRS: 34 QRSD: 165 T: -3 QT: 384 QTc: 525 Interpretive Statements Atrial fibrillation Right bundle branch block Compared to ECG 02/13/2019 21:20:50 No significant changes Electronically Signed On 03-11-2019 7:52:37 CDT by Pritesh Aleman [email or web address] ��������������������������������������������� <ELECTRONICALLY SIGNED> ���������������������������������������� By: Pritesh Aleman MD, [facility] ��������������������������������������������� 03/11/19 0752 1625 1625 Pritesh Aleman MD, FACC /EPI
== END 2019-03-10 17:50 | disposition home or self-care (01) ==
LOC: ER 16:11
PROVIDERS: Emergency Medicine
DX: I48.91 Unspecified atrial fibrillation (principal); E83.42 Hypomagnesemia; K21.9 Gastro-esophageal reflux disease without esophagitis; I10 Essential (primary) hypertension; E11.40 Type 2 diabetes mellitus with diabetic neuropathy, unspecified; M10.9 Gout, unspecified; E66.9 Obesity, unspecified; J96.10 Chronic respiratory failure, unspecified whether with hypoxia or hypercapnia; J44.9 Chronic obstructive pulmonary disease, unspecified

== ENCOUNTER 2019-04-09 12:01 | Emergency (ER) | payer OTHER ==
[~2019-04-09] VITALS: Ht 198.1 cm; Wt 95.3 kg
--- NOTE | 2019-04-09 12:58 | EKG ---
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: : 1939-11-06 Requested By: Eleuterio Carrizales Order Number: [id number] MD: Dick Arauz Measurements Intervals [place] Rate: 97 P: [place]: QRS: 38 QRSD: 166 T: -12 QT: 406 QTc: 516 Interpretive Statements Atrial fibrillation Right bundle branch block Baseline wander in lead(s) II,III,aVF,V3,V4,V5,V6 Compared to ECG 03/10/2019 16:25:15 No significant changes Electronically Signed On 04-09-2019 12:58:06 CDT by Dick Arauz [email or web address] ��������������������������������������������� <ELECTRONICALLY SIGNED> ���������������������������������������� By: Dick Arauz MD ��������������������������������������������� 04/09/19 1258 1211 121 Dick Arauz MD /EPI
[2019-04-09 13:07] LABS: HEMATOCRIT 35.3 % (42.0-52.0); HEMOGLOBIN 12.1 gm/dL (14.0-18.0); MCH 30.8 pg (26.0-34.0); MCHC 34.3 g/dL (28.0-37.0); MCV 89.7 fL (80.0-100.0); RBC 3.94 mil/uL (4.50-6.00); RDW 15.3 % (10.5-14.5); WBC 8.9 thou/uL (4.0-11.0)
[2019-04-09 13:16] LABS: ANION GAP 5 mmol/L (7-16); BUN 28 mg/dL (7-18); CALCIUM 9.8 mg/dL (8.5-10.1); CHLORIDE 100 mmol/L (98-107); CO2 32 mmol/L (21-32); CREATININE 1.4 mg/dL (0.7-1.3); GLUCOSE 85 mg/dL (74-106); POTASSIUM 4.2 mmol/L (3.5-5.1); SODIUM 137 mmol/L (136-145)
[2019-04-09 13:19] LABS: INR 1.8; PROTIME 18.3 Seconds (9.3-11.4)
[2019-04-09 13:24] LABS: TROPONIN-I <0.06 ng/mL (<0.06)
[2019-04-09 13:54] VITALS: BP 130/70
[2019-04-09 14:45] LABS: PLATELET COUNT 129 thou/uL (150-400)
[2019-04-09 14:47] LABS: ABSOLUTE NEUTROPHILS 5.2 thou/uL (1.4-8.2)
== END 2019-04-09 13:54 | disposition home or self-care (01) ==
LOC: ER 12:01
PROVIDERS: Emergency Medicine
DX: R07.89 Other chest pain (principal); K21.9 Gastro-esophageal reflux disease without esophagitis; I11.9 Hypertensive heart disease without heart failure; I43 Cardiomyopathy in diseases classified elsewhere; E11.40 Type 2 diabetes mellitus with diabetic neuropathy, unspecified; E78.00 Pure hypercholesterolemia, unspecified; M10.9 Gout, unspecified; E66.9 Obesity, unspecified; J96.10 Chronic respiratory failure, unspecified whether with hypoxia or hypercapnia; I48.2 Chronic atrial fibrillation; Z68.24 Body mass index [BMI] 24.0-24.9, adult; Z90.49 Acquired absence of other specified parts of digestive tract

== ENCOUNTER 2019-04-25 08:41 | Emergency (ER) | payer OTHER ==
[~2019-04-25] VITALS: Ht 198.1 cm; Wt 140.6 kg
[2019-04-25 10:57] LABS: HEMATOCRIT 33.8 % (42.0-52.0); HEMOGLOBIN 11.6 gm/dL (14.0-18.0); MCH 30.2 pg (26.0-34.0); MCHC 34.4 g/dL (28.0-37.0); MCV 87.9 fL (80.0-100.0); PLATELET COUNT 114 thou/uL (150-400); RBC 3.85 mil/uL (4.50-6.00); WBC 29.8 thou/uL (4.0-11.0)
[2019-04-25 11:09] LABS: CALCIUM 9.7 mg/dL (8.5-10.1); CREATININE 1.5 mg/dL (0.7-1.3); POTASSIUM 3.8 mmol/L (3.5-5.1)
[2019-04-25 11:14] LABS: ALBUMIN 3.1 g/dL (3.4-5.0); DIRECT BILIRUBIN 1.3 mg/dL (<0.1-0.3); INR 1.8; PROTIME 19.2 Seconds (9.3-11.4); TOTAL BILIRUBIN 2.3 mg/dL (<0.1-1.0); TOTAL PROTEIN 7.3 g/dL (6.4-8.2)
[2019-04-25 11:28] LABS: URINE BILIRUBIN NEGATIVE (Negative); URINE BLOOD TRACE (Negative); URINE CLARITY CLEAR; URINE COLOR YELLOW; URINE GLUCOSE-RANDOM* NEGATIVE (Negative); URINE KETONES NEGATIVE (Negative); URINE LEUKOCYTES-REFLEX NEGATIVE (Negative); URINE NITRITE-REFLEX NEGATIVE (Negative); URINE PROTEIN (DIPSTICK) TRACE (Negative)
[2019-04-25 11:36] LABS: ABSOLUTE NEUTROPHILS 22.1 thou/uL (1.4-8.2)
[2019-04-25 11:37] LABS: LARGE PLATELETS SEVERAL
[2019-04-25 13:08] VITALS: BP 131/76
== END 2019-04-25 13:09 | disposition short-term general hospital (02) ==
LOC: ER 08:41
PROVIDERS: Emergency Medicine
DX: N49.2 Inflammatory disorders of scrotum (principal); J44.9 Chronic obstructive pulmonary disease, unspecified; G47.33 Obstructive sleep apnea (adult) (pediatric); I48.91 Unspecified atrial fibrillation; K58.9 Irritable bowel syndrome, unspecified; K21.9 Gastro-esophageal reflux disease without esophagitis; I10 Essential (primary) hypertension; G62.9 Polyneuropathy, unspecified; E11.9 Type 2 diabetes mellitus without complications; I42.9 Cardiomyopathy, unspecified; E78.00 Pure hypercholesterolemia, unspecified; M10.9 Gout, unspecified; Z86.73 Personal history of transient ischemic attack (TIA), and cerebral infarction without residual deficits; Z90.49 Acquired absence of other specified parts of digestive tract